=== PATIENT | male | born 1955 | race Caucasian/White ===

== ENCOUNTER 2016-10-12 12:41 | Inpatient (IN) | payer MEDICARE ==
[~2016-10-12] VITALS: Ht 180.3 cm; Wt 87.0 kg
[~2016-10-12 12:41] MED LIST: ADLT ASA LOW81 MG PO; ANUCORT-HC25 MG RE; ASA LO-DOSE81 MG OR; CIPRO500 MG OR; DILANTIN100 MG OR; DILANTIN100 MG PO; GLYBURID MCR6 MG PO; KLOR-CON 1010 MEQ PO; LISINOP/HCTZ1 TA1 PO; LISINOPRIL/HYDR1 TA1 PO; METFORMIN1000 MG PO; MULTI VITAMN PO; NOVOLOG SC; POT CHLORIDE10 MEQ OR; POT CHLORIDE8 ME1 OR; RANITIDINE150 M1 PO; ZOCOR20 MG PO
[2016-10-12] MEDS ORDERED: ALLOPURINOL100 MG PO (13:09)
[2016-10-12] MEDS ORDERED: MAXZIDE-2537.5 MG/TA PO (13:11)
[2016-10-12 13:50] LABS: HEMOGLOBIN 10.4 g/dl (14.0-18.0); IMMATURE GRANULOCYTES 1.4 % (0.0-1.0); MEAN CELL VOLUME 91.4 fL CALC (80.0-100.0); MEAN CORPUSCULAR HGB 29.7 pG CALC (26.0-32.0); MEAN CORPUSCULAR HGB CONC 32.5 g/L CALC (32.0-36.0); NEUT# 10.25 thou/uL (1.82-7.42); RED BLOOD COUNT 3.5 mill/uL (4.70-6.10)
[2016-10-12] MEDS ORDERED: GLIPIZIDE ER10 M1 PO (13:51)
[2016-10-12] MEDS ORDERED: AMLODIPINE10 MG PO (13:52)
[2016-10-12] MEDS ORDERED: LISINOPRIL/HYDR1 TA1 PO (13:54)
[2016-10-12] MEDS ORDERED: FLUOXETINE40 MG PO (13:55)
[2016-10-12 14:51] LABS: ALBUMIN 4.4 g/dL (3.2-5.0); ALKALINE PHOSPHATASE 86 u/l (38-126); AMYLASE 66 u/l (30-110); BILIRUBIN, TOTAL 0.5 mg/dL (0.0-1.4); BUN 61 mg/dL (8-23); BUN/CREATININE RATIO 30 (12-20 (CALC)); CALCIUM 9.3 mg/dL (8.4-10.2); CARBON DIOXIDE 19 mmol/l (22-30); CHLORIDE 109 mmol/l (95-108); GFR 34 ML/MIN (>=60 (CALC)); GFR FOR AFR.AMER. 41 ML/MIN (>=60 (CALC)); GLUCOSE 277 mg/dL (82-115); LIPASE 198 u/l (23-300); SGOT/AST 34 u/l (19-48); SGPT/ALT 45 u/l (11-66); SODIUM 147 mmol/l (137-146); TOTAL PROTEIN 7.3 g/dL (6.3-8.2)
[2016-10-12 14:57] LABS: ANION GAP 24 (6-22 (CALC)); PHENYTOIN (DILANTIN) 35 ug/mL (10 - 20); POTASSIUM 5.4 mmol/l (3.5-5.1)
[2016-10-12 15:07] LABS: MYOGLOBIN 608 ng/mL (0 - 121)
[2016-10-12 18:30] VITALS: BP 132/70
[2016-10-13 05:25] VITALS: BP 127/74
[2016-10-13 06:45] LABS: HEMATOCRIT 26.5 % (39.0-50.0); HEMOGLOBIN 8.6 g/dl (14.0-18.0); IMMATURE GRANULOCYTES 0.5 % (0.0-1.0); MEAN CELL VOLUME 91.7 fL CALC (80.0-100.0); MEAN CORPUSCULAR HGB 29.8 pG CALC (26.0-32.0); MEAN CORPUSCULAR HGB CONC 32.5 g/L CALC (32.0-36.0); NEUT# 4.71 thou/uL (1.82-7.42); RED BLOOD COUNT 2.89 mill/uL (4.70-6.10)
[2016-10-13 06:54] LABS: URINE BLOOD DIPSTICK TRACE-INTACT (NEGATIVE); URINE CLARITY SLIGHT CLOUDY; URINE COLOR YELLOW; URINE GLUCOSE - DIPSTICK NEGATIVE (NEGATIVE); URINE KETONE 15 mg/dL (NEGATIVE); URINE LEUK ESTERASE TRACE (NEGATIVE); URINE NITRITE - DIPSTICK NEGATIVE (Negative); URINE PH 5.5 (4.5-8.0); URINE PROTEIN - DIPSTICK NEGATIVE (NEG-TRACE); URINE UROBILINOGEN - DIPSTICK 0.2 E.U./dL (0.2)
[2016-10-13 07:02] LABS: URINE BILIRUBIN - DIPSTICK MODERATE (NEGATIVE)
[2016-10-13 07:06] LABS: CALCIUM 8.5 mg/dL (8.4-10.2); CREATININE 1.5 mg/dL (0.7-1.3)
[2016-10-13 09:27] VITALS: BP 148/75
[2016-10-13 11:30] VITALS: BP 144/74
[2016-10-13 15:12] VITALS: BP 101/62
[2016-10-13 19:05] VITALS: BP 138/85
[2016-10-14 00:10] VITALS: BP 138/81
[2016-10-14 04:24] VITALS: BP 120/68
[2016-10-14 06:12] LABS: HEMATOCRIT 24.4 % (39.0-50.0); HEMOGLOBIN 7.8 g/dl (14.0-18.0); IMMATURE GRANULOCYTES 0.3 % (0.0-1.0); MEAN CELL VOLUME 92.4 fL CALC (80.0-100.0); MEAN CORPUSCULAR HGB 29.5 pG CALC (26.0-32.0); NEUT# 2.47 thou/uL (1.82-7.42); RED BLOOD COUNT 2.64 mill/uL (4.70-6.10); RED CELL DISTRI WIDTH 16.6 % (11.5-15.5)
[2016-10-14 06:26] LABS: ANION GAP 15 (6-22 (CALC)); BUN 32 mg/dL (8-23); BUN/CREATININE RATIO 30 (12-20 (CALC)); CALCIUM 8.4 mg/dL (8.4-10.2); CARBON DIOXIDE 23 mmol/l (22-30); CHLORIDE 110 mmol/l (95-108); CREATININE 1.1 mg/dL (0.7-1.3); GFR > 60 ML/MIN (>=60 (CALC)); GFR FOR AFR.AMER. > 60 ML/MIN (>=60 (CALC)); GLUCOSE 224 mg/dL (82-115); POTASSIUM 4.2 mmol/l (3.5-5.1); SODIUM 144 mmol/l (137-146)
[2016-10-14 06:36] LABS: PHENYTOIN (DILANTIN) 21 ug/mL (10 - 20)
[2016-10-14 08:32] VITALS: BP 118/58
[2016-10-14 13:01] VITALS: BP 126/71
[2016-10-14 16:26] VITALS: BP 119/72
[2016-10-14 19:20] VITALS: BP 139/78
[2016-10-15] VITALS (7 sets, daily range): BP systolic 120–151; BP diastolic 68–87
[2016-10-15 05:42] LABS: HEMATOCRIT 24.9 % (39.0-50.0); IMMATURE GRANULOCYTES 0.3 % (0.0-1.0); MEAN CELL VOLUME 91.5 fL CALC (80.0-100.0); MEAN CORPUSCULAR HGB 29.4 pG CALC (26.0-32.0); MEAN CORPUSCULAR HGB CONC 32.1 g/L CALC (32.0-36.0); NEUT# 1.84 thou/uL (1.82-7.42); RED BLOOD COUNT 2.72 mill/uL (4.70-6.10); RED CELL DISTRI WIDTH 16.2 % (11.5-15.5)
[2016-10-15 05:58] LABS: ANION GAP 14 (6-22 (CALC)); BUN 23 mg/dL (8-23); BUN/CREATININE RATIO 22 (12-20 (CALC)); CALCIUM 8.5 mg/dL (8.4-10.2); CARBON DIOXIDE 24 mmol/l (22-30); CHLORIDE 108 mmol/l (95-108); GFR > 60 ML/MIN (>=60 (CALC)); GFR FOR AFR.AMER. > 60 ML/MIN (>=60 (CALC)); GLUCOSE 195 mg/dL (82-115); PHENYTOIN (DILANTIN) 15 ug/mL (10 - 20); POTASSIUM 4.3 mmol/l (3.5-5.1); SODIUM 141 mmol/l (137-146)
[2016-10-16 03:25] VITALS: BP 137/77
[2016-10-16 04:56] LABS: HEMATOCRIT 24.9 % (39.0-50.0); IMMATURE GRANULOCYTES 0.3 % (0.0-1.0); MEAN CELL VOLUME 91.5 fL CALC (80.0-100.0); MEAN CORPUSCULAR HGB 29.4 pG CALC (26.0-32.0); MEAN CORPUSCULAR HGB CONC 32.1 g/L CALC (32.0-36.0); NEUT# 1.94 thou/uL (1.82-7.42); RED BLOOD COUNT 2.72 mill/uL (4.70-6.10); RED CELL DISTRI WIDTH 16.1 % (11.5-15.5)
[2016-10-16 05:19] LABS: ANION GAP 13 (6-22 (CALC)); BUN 18 mg/dL (8-23); BUN/CREATININE RATIO 18 (12-20 (CALC)); CALCIUM 8.7 mg/dL (8.4-10.2); CARBON DIOXIDE 26 mmol/l (22-30); CHLORIDE 108 mmol/l (95-108); CREATININE 1.1 mg/dL (0.7-1.3); GFR > 60 ML/MIN (>=60 (CALC)); GFR FOR AFR.AMER. > 60 ML/MIN (>=60 (CALC)); GLUCOSE 193 mg/dL (82-115); SODIUM 142 mmol/l (137-146)
[2016-10-16 07:27] VITALS: BP 129/75
[2016-10-16 10:47] VITALS: BP 127/65
[2016-10-16] MEDS ORDERED: LYPHOCIN1 GM IV (11:55)
[2016-10-16] MEDS ORDERED: ZESTRIL5 M1 PO (11:55)
[2016-10-16 14:45] VITALS: BP 122/75
== END 2016-10-16 15:28 | DRG 683 ==
LOC: ENPENDDIS → ED 12:41 → ED-I 15:02 → ED 16:31 → MS2 16:32
PROVIDERS: Emergency Medicine; ADMIT Internal Medicine; ATTEND Internal Medicine
PROC: 02HV33Z Insertion of Infusion Device into Superior Vena Cava, Percutaneous Approach (ICD-10-PCS; principal; 2016-10-16)
PROC: B518ZZA Fluoroscopy of Superior Vena Cava, Guidance (ICD-10-PCS; 2016-10-16)
DX: N17.9 Acute kidney failure, unspecified (principal); K92.0 Hematemesis; L89.152 Pressure ulcer of sacral region, stage 2; D70.2 Other drug-induced agranulocytosis; R78.81 Bacteremia; I69.354 Hemiplegia and hemiparesis following cerebral infarction affecting left non-dominant side; E86.0 Dehydration; E86.1 Hypovolemia; E11.9 Type 2 diabetes mellitus without complications; I10 Essential (primary) hypertension; T42.0X5A Adverse effect of hydantoin derivatives, initial encounter; B95.7 Other staphylococcus as the cause of diseases classified elsewhere; G40.909 Epilepsy, unspecified, not intractable, without status epilepticus; Z91.81 History of falling; Z87.891 Personal history of nicotine dependence; Z79.84 Long term (current) use of oral hypoglycemic drugs
CPT/HCPCS: J3370; S0164

== ENCOUNTER 2017-06-16 19:16 | Emergency (ER) | payer MEDICARE ==
[~2017-06-16] VITALS: Ht 180.3 cm; Wt 83.6 kg
[~2017-06-16 19:16] MED LIST changes: +ALLOPURINOL100 MG PO; +AMLODIPINE10 MG PO; +FLUOXETINE40 MG PO; +GLIPIZIDE ER10 M1 PO; +LYPHOCIN1 GM IV; +MAXZIDE-2537.5 MG/TA PO; +ZESTRIL5 M1 PO
[2017-06-16 20:19] VITALS: BP 131/71
== END 2017-06-16 20:10 | disposition home or self-care (01) ==
LOC: ED 19:16
PROC: 0HQMXZZ Repair Right Foot Skin, External Approach (ICD-10-PCS; principal; 2017-06-16)
DX: S91.311A Laceration without foreign body, right foot, initial encounter (principal); E11.9 Type 2 diabetes mellitus without complications; W27.2XXA Contact with scissors, initial encounter; Y92.000 Kitchen of unspecified non-institutional (private) residence as the place of occurrence of the external cause; Z86.73 Personal history of transient ischemic attack (TIA), and cerebral infarction without residual deficits

== ENCOUNTER 2017-12-13 14:54 | Emergency (ER) | payer MEDICARE, MEDICAID ==
[~2017-12-13] VITALS: Ht 180.3 cm; Wt 86.0 kg
[2017-12-13 15:18] LABS: HEMATOCRIT 36.7 % (39.0-50.0); HEMOGLOBIN 11.9 g/dl (14.0-18.0); IMMATURE GRANULOCYTES 0.4 % (0.0-5.0); MEAN CELL VOLUME 83.8 fL CALC (80.0-100.0); MEAN CORPUSCULAR HGB 27.2 pG CALC (26.0-32.0); MEAN CORPUSCULAR HGB CONC 32.4 g/L CALC (32.0-36.0); NEUT# 4.61 thou/uL (1.82-7.42); RED BLOOD COUNT 4.38 mill/uL (4.70-6.10); RED CELL DISTRI WIDTH 15.4 % (11.5-15.5)
[2017-12-13 15:39] LABS: ALBUMIN 4.1 g/dL (3.2-5.0); ALKALINE PHOSPHATASE 121 u/l (38-126); BILIRUBIN, TOTAL 0.5 mg/dL (0.0-1.4); BUN 13 mg/dL (8-23); BUN/CREATININE RATIO 12 (12-20 (CALC)); CARBON DIOXIDE 24 mmol/l (22-30); CHLORIDE 98 mmol/l (95-108); CREATININE 1.1 mg/dL (0.7-1.3); GFR > 60 ML/MIN (>=60 (CALC)); GFR FOR AFR.AMER. > 60 ML/MIN (>=60 (CALC)); SGOT/AST 21 u/l (19-48); SGPT/ALT 28 u/l (11-66); TOTAL PROTEIN 7.3 g/dL (6.3-8.2)
[2017-12-13 15:41] LABS: ANION GAP 19 (6-22 (CALC)); PHENYTOIN (DILANTIN) 7 ug/mL (10 - 20); POTASSIUM 3.2 mmol/l (3.5-5.1); SODIUM 138 mmol/l (137-146)
[2017-12-13] MEDS ORDERED: GABAPENTIN300 M2 PO (16:17)
[2017-12-13] MEDS ORDERED: DILANTIN100 MG PO (16:18)
[2017-12-13] MEDS ORDERED: ZESTRIL5 MG PO (16:19)
[2017-12-13] MEDS ORDERED: HYDROCHLOROT12.5 M1 PO (16:20)
[2017-12-13] MEDS ORDERED: CRESTOR10 MG PO (16:22)
[2017-12-13 16:56] LABS: URINE BILIRUBIN - DIPSTICK NEGATIVE (NEGATIVE); URINE BLOOD DIPSTICK NEGATIVE (NEGATIVE); URINE CLARITY CLEAR; URINE COLOR YELLOW; URINE GLUCOSE - DIPSTICK >=1000 mg/dL (NEGATIVE); URINE KETONE NEGATIVE (NEGATIVE); URINE LEUK ESTERASE NEGATIVE (NEGATIVE); URINE NITRITE - DIPSTICK NEGATIVE (Negative); URINE PROTEIN - DIPSTICK NEGATIVE (NEG-TRACE); URINE UROBILINOGEN - DIPSTICK 0.2 E.U./dL (0.2)
[2017-12-13 17:00] LABS: BARBITURATES POSITIVE (NEGATIVE); COCAINE NEGATIVE (NEGATIVE); METHADONE NEGATIVE (NEGATIVE); OXCYCODONE NEGATIVE (NEGATIVE); TETRAHYDROCANNABIONOL NEGATIVE (NEGATIVE); TRICYLIC ANTIDEPRESSANTS NEGATIVE (NEGATIVE)
[2017-12-13] MEDS ORDERED: MIRALAX3350 N1 PO (17:06)
[2017-12-13] MEDS ORDERED: DULCOLAX10 MG RE (17:06)
[2017-12-13 17:45] VITALS: BP 154/75
== END 2017-12-13 17:45 | disposition home or self-care (01) ==
LOC: ED 14:54
PROVIDERS: Emergency Medicine
DX: K59.00 Constipation, unspecified (principal); E11.65 Type 2 diabetes mellitus with hyperglycemia; Z86.73 Personal history of transient ischemic attack (TIA), and cerebral infarction without residual deficits

== ENCOUNTER 2017-12-16 14:48 | Inpatient (IN) | payer MEDICARE, MEDICAID ==
[~2017-12-16] VITALS: Ht 180.3 cm; Wt 88.9 kg
[~2017-12-16 14:48] MED LIST changes: +CRESTOR10 MG PO; +DULCOLAX10 MG RE; +GABAPENTIN300 M2 PO; +HYDROCHLOROT12.5 M1 PO; +MIRALAX3350 N1 PO; +ZESTRIL5 MG PO
[2017-12-16 15:32] LABS: HEMOGLOBIN 11.1 g/dl (14.0-18.0); IMMATURE GRANULOCYTES 0.7 % (0.0-5.0); MEAN CELL VOLUME 84.4 fL CALC (80.0-100.0); MEAN CORPUSCULAR HGB 27.5 pG CALC (26.0-32.0); MEAN CORPUSCULAR HGB CONC 32.6 g/L CALC (32.0-36.0); NEUT# 11.92 thou/uL (1.82-7.42); RED BLOOD COUNT 4.03 mill/uL (4.70-6.10); RED CELL DISTRI WIDTH 15.6 % (11.5-15.5)
[2017-12-16 15:47] LABS: ALBUMIN 3.7 g/dL (3.2-5.0); ALKALINE PHOSPHATASE 106 u/l (38-126); ANION GAP 18 (6-22 (CALC)); BILIRUBIN, TOTAL 0.9 mg/dL (0.0-1.4); BUN 19 mg/dL (8-23); BUN/CREATININE RATIO 14 (12-20 (CALC)); CARBON DIOXIDE 24 mmol/l (22-30); CHLORIDE 97 mmol/l (95-108); CREATININE 1.4 mg/dL (0.7-1.3); GFR 51 ML/MIN (>=60 (CALC)); GFR FOR AFR.AMER. > 60 ML/MIN (>=60 (CALC)); LIPASE 84 u/l (23-300); POTASSIUM 3.7 mmol/l (3.5-5.1); SGPT/ALT 36 u/l (11-66); SODIUM 136 mmol/l (137-146); TOTAL PROTEIN 6.4 g/dL (6.3-8.2)
[2017-12-16 15:56] LABS: SGOT/AST 48 u/l (19-48)
[2017-12-16 17:54] LABS: URINE BILIRUBIN - DIPSTICK NEGATIVE (NEGATIVE); URINE BLOOD DIPSTICK LARGE (NEGATIVE); URINE CLARITY SL CLOUDY; URINE COLOR YELLOW; URINE GLUCOSE - DIPSTICK >=1000 mg/dL (NEGATIVE); URINE KETONE TRACE mg/dL (NEGATIVE); URINE LEUK ESTERASE NEGATIVE (NEGATIVE); URINE NITRITE - DIPSTICK POSITIVE (Negative); URINE PROTEIN - DIPSTICK 30 mg/dL (NEG-TRACE); URINE UROBILINOGEN - DIPSTICK 0.2 E.U./dL (0.2)
[2017-12-16 18:00] LABS: URINE BACTERIA FEW hpf
[2017-12-17 01:00] VITALS: BP 123/64
[2017-12-17 04:00] VITALS: BP 123/64
[2017-12-17 07:31] VITALS: BP 115/63
[2017-12-17 11:00] VITALS: BP 131/70
[2017-12-17 13:08] LABS: HEMATOCRIT 35.5 % (39.0-50.0); HEMOGLOBIN 11.2 g/dl (14.0-18.0); IMMATURE GRANULOCYTES 0.4 % (0.0-5.0); MEAN CELL VOLUME 86.4 fL CALC (80.0-100.0); MEAN CORPUSCULAR HGB 27.3 pG CALC (26.0-32.0); MEAN CORPUSCULAR HGB CONC 31.5 g/L CALC (32.0-36.0); NEUT# 7.27 thou/uL (1.82-7.42); RED BLOOD COUNT 4.11 mill/uL (4.70-6.10); RED CELL DISTRI WIDTH 15.8 % (11.5-15.5)
[2017-12-17 13:24] LABS: ANION GAP 15 (6-22 (CALC)); BUN 20 mg/dL (8-23); BUN/CREATININE RATIO 18 (12-20 (CALC)); CARBON DIOXIDE 23 mmol/l (22-30); CHLORIDE 105 mmol/l (95-108); CREATININE 1.1 mg/dL (0.7-1.3); GFR > 60 ML/MIN (>=60 (CALC)); GFR FOR AFR.AMER. > 60 ML/MIN (>=60 (CALC)); POTASSIUM 3.5 mmol/l (3.5-5.1); SODIUM 139 mmol/l (137-146)
[2017-12-17] MEDS ORDERED: ZYLOPRIM100 MG PO (13:48)
[2017-12-17] MEDS ORDERED: NEURONTIN300 MG PO (13:49)
[2017-12-17] MEDS ORDERED: PRINIVIL5 MG PO (13:50)
[2017-12-17] MEDS ORDERED: PHENYTOIN EX100 MG PO (13:52)
[2017-12-17] MEDS ORDERED: RANITIDINE150 M1 PO (13:53)
[2017-12-17] MEDS ORDERED: CRESTOR10 MG PO (13:54)
[2017-12-17] MEDS ORDERED: HYDROCHLOROT12.5 M1 PO (13:55)
[2017-12-17 16:50] VITALS: BP 135/62
[2017-12-17 19:33] VITALS: BP 117/64
[2017-12-18 00:45] VITALS: BP 138/72
[2017-12-18 05:03] VITALS: BP 144/76
[2017-12-18 08:44] VITALS: BP 143/84
[2017-12-18 11:14] VITALS: BP 145/79
[2017-12-18 15:50] VITALS: BP 158/80
[2017-12-18 19:27] VITALS: BP 140/75
[2017-12-19 00:46] VITALS: BP 149/69
[2017-12-19 04:32] VITALS: BP 137/75
[2017-12-19 08:49] VITALS: BP 128/68
[2017-12-19 11:23] VITALS: BP 145/78
[2017-12-19 15:30] VITALS: BP 144/79
[2017-12-19 19:12] VITALS: BP 138/71
[2017-12-20] VITALS (7 sets, daily range): BP systolic 127–154; BP diastolic 66–78
[2017-12-20 07:18] LABS: HEMATOCRIT 30.5 % (39.0-50.0); HEMOGLOBIN 9.9 g/dl (14.0-18.0); IMMATURE GRANULOCYTES 0.3 % (0.0-5.0); MEAN CELL VOLUME 84.3 fL CALC (80.0-100.0); MEAN CORPUSCULAR HGB 27.3 pG CALC (26.0-32.0); MEAN CORPUSCULAR HGB CONC 32.5 g/L CALC (32.0-36.0); NEUT# 2.02 thou/uL (1.82-7.42); RED BLOOD COUNT 3.62 mill/uL (4.70-6.10); RED CELL DISTRI WIDTH 15.1 % (11.5-15.5)
[2017-12-20 07:37] LABS: ANION GAP 13 (6-22 (CALC)); BUN 13 mg/dL (8-23); BUN/CREATININE RATIO 15 (12-20 (CALC)); CARBON DIOXIDE 25 mmol/l (22-30); CHLORIDE 104 mmol/l (95-108); CREATININE 0.9 mg/dL (0.7-1.3); GFR > 60 ML/MIN (>=60 (CALC)); GFR FOR AFR.AMER. > 60 ML/MIN (>=60 (CALC)); POTASSIUM 3.6 mmol/l (3.5-5.1); SODIUM 139 mmol/l (137-146)
[2017-12-20 10:47] LABS: CALCULATED LDLCHOLESTEROL 25 mg/dL (62-129 (CALC)); CHOLESTEROL HDL RATIO 7.6 (<4.4 (CALC)); HDL CHOLESTEROL 14 mg/dL (>=40); MAGNESIUM 1.7 mg/dL (1.6-2.3); TOTAL CHOLESTEROL 104 mg/dl (0-199); TOTAL TRIGLYCERIDES 327 mg/dl (30-149); VLDL CHOLESTROL 65 mg/dl (4-45 (CALC))
[2017-12-21] VITALS (8 sets, daily range): BP systolic 133–158; BP diastolic 69–78
[2017-12-21] MEDS ORDERED: KEFLEX500 MG PO (12:01)
[2017-12-21] MEDS ORDERED: SURFAK240 MG/CAP PO (12:01)
== END 2017-12-21 15:08 | DRG 690 ==
LOC: ED 14:48 → ED-I 22:20 → ED 12-17 00:13 → MS2 12-17 00:14
PROVIDERS: Family Medicine; General Practice; Nurse Practitioner Family; ADMIT Internal Medicine; ATTEND Internal Medicine
PROC: 0T768DZ Dilation of Right Ureter with Intraluminal Device, Via Natural or Artificial Opening Endoscopic (ICD-10-PCS; principal; 2017-12-21)
PROC: BT1DYZZ Fluoroscopy of Right Kidney, Ureter and Bladder using Other Contrast (ICD-10-PCS; 2017-12-21)
DX: N13.6 Pyonephrosis (principal); M62.82 Rhabdomyolysis; I69.354 Hemiplegia and hemiparesis following cerebral infarction affecting left non-dominant side; E87.2 Acidosis; R55 Syncope and collapse; N17.9 Acute kidney failure, unspecified; I10 Essential (primary) hypertension; E11.65 Type 2 diabetes mellitus with hyperglycemia; S00.03XA Contusion of scalp, initial encounter; S80.212A Abrasion, left knee, initial encounter; S80.211A Abrasion, right knee, initial encounter; G40.909 Epilepsy, unspecified, not intractable, without status epilepticus; B96.20 Unspecified Escherichia coli [E. coli] as the cause of diseases classified elsewhere; W18.30XA Fall on same level, unspecified, initial encounter; Y92.009 Unspecified place in unspecified non-institutional (private) residence as the place of occurrence of the external cause; Z87.891 Personal history of nicotine dependence; Z91.14 Patient's other noncompliance with medication regimen
CPT/HCPCS: Q9967

== ENCOUNTER 2018-08-08 15:54 | Observation (INO) | payer MEDICARE ==
[~2018-08-08] VITALS: Ht 180.3 cm; Wt 80.7 kg
[~2018-08-08 15:54] MED LIST changes: +KEFLEX500 MG PO; +NEURONTIN300 MG PO; +PHENYTOIN EX100 MG PO; +PRINIVIL5 MG PO; +SURFAK240 MG/CAP PO; +ZYLOPRIM100 MG PO
[2018-08-08 16:39] LABS: HEMATOCRIT 32.6 % (39.0-50.0); HEMOGLOBIN 10.2 g/dl (14.0-18.0); IMMATURE GRANULOCYTES 0.2 % (0.0-5.0); MEAN CELL VOLUME 89.1 fL CALC (80.0-100.0); MEAN CORPUSCULAR HGB 27.9 pG CALC (26.0-32.0); MEAN CORPUSCULAR HGB CONC 31.3 g/L CALC (32.0-36.0); NEUT# 4.18 thou/uL (1.82-7.42); RED BLOOD COUNT 3.66 mill/uL (4.70-6.10); RED CELL DISTRI WIDTH 15.9 % (11.5-15.5)
[2018-08-08 16:59] LABS: ALBUMIN 4.4 g/dL (3.2-5.0); ALKALINE PHOSPHATASE 105 u/l (38-126); ANION GAP 19 (6-22 (CALC)); BILIRUBIN, TOTAL 0.5 mg/dL (0.0-1.4); BUN 34 mg/dL (8-23); BUN/CREATININE RATIO 20 (12-20 (CALC)); CARBON DIOXIDE 23 mmol/l (22-30); CHLORIDE 106 mmol/l (95-108); CREATININE 1.7 mg/dL (0.7-1.3); ETHYL ALCOHOL 0 mg/dl (0-30); GFR 41 ML/MIN (>=60 (CALC)); GFR FOR AFR.AMER. 50 ML/MIN (>=60 (CALC)); SGOT/AST 18 u/l (19-48); SODIUM 144 mmol/l (137-146); TOTAL PROTEIN 7.4 g/dL (6.3-8.2)
[2018-08-08] MEDS ORDERED: ATORVASTATIN CA10 MG PO (18:56)
[2018-08-08] MEDS ORDERED: GLIPIZIDE ER5 MG PO (18:58)
[2018-08-08] MEDS ORDERED: METFORMIN500 MG PO (18:59)
[2018-08-08] MEDS ORDERED: TRADJENTA5 MG PO (19:00)
[2018-08-08] MEDS ORDERED: DILANTIN100 MG PO (19:01)
[2018-08-08] MEDS ORDERED: AMLODIPINE BESYL5 MG PO (19:02)
[2018-08-08] MEDS ORDERED: ASPIRIN81 MG PO (19:02)
[2018-08-08] MEDS ORDERED: MULTI VIT PO (19:06)
[2018-08-08 19:30] VITALS: BP 148/77
[2018-08-08 20:55] LABS: URINE BILIRUBIN - DIPSTICK NEGATIVE (NEGATIVE); URINE BLOOD DIPSTICK LARGE (NEGATIVE); URINE COLOR YELLOW; URINE GLUCOSE - DIPSTICK NEGATIVE (NEGATIVE); URINE KETONE NEGATIVE (NEGATIVE); URINE NITRITE - DIPSTICK NEGATIVE (Negative); URINE PH 6.5 (4.5-8.0); URINE PROTEIN - DIPSTICK 100 mg/dL (NEG-TRACE); URINE UROBILINOGEN - DIPSTICK 0.2 E.U./dL (0.2)
[2018-08-08 20:56] LABS: URINE LEUK ESTERASE LARGE (NEGATIVE)
[2018-08-08 20:58] LABS: COCAINE NEGATIVE (NEGATIVE); METHADONE NEGATIVE (NEGATIVE); TETRAHYDROCANNABIONOL NEGATIVE (NEGATIVE)
[2018-08-08 20:59] LABS: BARBITURATES POSITIVE (NEGATIVE); OXCYCODONE NEGATIVE (NEGATIVE); TRICYLIC ANTIDEPRESSANTS NEGATIVE (NEGATIVE)
[2018-08-08 21:02] LABS: URINE WBC 50-100 WBC/hpf (0-5)
[2018-08-09 00:33] VITALS: BP 121/69
[2018-08-09 04:15] VITALS: BP 120/64
[2018-08-09 06:14] LABS: ANION GAP 14 (6-22 (CALC)); BUN 28 mg/dL (8-23); BUN/CREATININE RATIO 21 (12-20 (CALC)); CARBON DIOXIDE 25 mmol/l (22-30); CHLORIDE 110 mmol/l (95-108); CREATININE 1.3 mg/dL (0.7-1.3); GFR 56 ML/MIN (>=60 (CALC)); GFR FOR AFR.AMER. > 60 ML/MIN (>=60 (CALC)); POTASSIUM 4.2 mmol/l (3.5-5.1); SODIUM 144 mmol/l (137-146)
[2018-08-09 07:43] VITALS: BP 116/61
[2018-08-09 11:30] VITALS: BP 118/61
[2018-08-09 17:18] VITALS: BP 105/58
[2018-08-09 19:00] VITALS: BP 110/62
[2018-08-10] VITALS (9 sets, daily range): BP systolic 108–139; BP diastolic 64–75
[2018-08-10 05:15] LABS: HEMATOCRIT 35.6 % (39.0-50.0); IMMATURE GRANULOCYTES 0.2 % (0.0-5.0); MEAN CELL VOLUME 91.5 fL CALC (80.0-100.0); MEAN CORPUSCULAR HGB 28.3 pG CALC (26.0-32.0); MEAN CORPUSCULAR HGB CONC 30.9 g/L CALC (32.0-36.0); NEUT# 3.37 thou/uL (1.82-7.42); RED BLOOD COUNT 3.89 mill/uL (4.70-6.10); RED CELL DISTRI WIDTH 15.7 % (11.5-15.5)
[2018-08-10 05:32] LABS: ALBUMIN 3.8 g/dL (3.2-5.0); ALKALINE PHOSPHATASE 88 u/l (38-126); AMYLASE 72 u/l (30-110); ANION GAP 14 (6-22 (CALC)); BILIRUBIN, TOTAL 0.3 mg/dL (0.0-1.4); BUN 21 mg/dL (8-23); BUN/CREATININE RATIO 19 (12-20 (CALC)); CARBON DIOXIDE 23 mmol/l (22-30); CHLORIDE 112 mmol/l (95-108); CREATININE 1.1 mg/dL (0.7-1.3); GFR > 60 ML/MIN (>=60 (CALC)); GFR FOR AFR.AMER. > 60 ML/MIN (>=60 (CALC)); LIPASE 465 u/l (23-300); MAGNESIUM 1.7 mg/dL (1.6-2.3); POTASSIUM 4.3 mmol/l (3.5-5.1); SGOT/AST 19 u/l (19-48); SODIUM 146 mmol/l (137-146); TOTAL PROTEIN 6.4 g/dL (6.3-8.2)
[2018-08-11] VITALS (8 sets, daily range): BP systolic 88–137; BP diastolic 51–78
[2018-08-11 05:13] LABS: IMMATURE GRANULOCYTES 0.2 % (0.0-5.0); MEAN CELL VOLUME 89.3 fL CALC (80.0-100.0); MEAN CORPUSCULAR HGB 28.1 pG CALC (26.0-32.0); MEAN CORPUSCULAR HGB CONC 31.4 g/L CALC (32.0-36.0); NEUT# 5.59 thou/uL (1.82-7.42); RED BLOOD COUNT 3.92 mill/uL (4.70-6.10); RED CELL DISTRI WIDTH 15.9 % (11.5-15.5)
[2018-08-11 05:39] LABS: ALBUMIN 4.2 g/dL (3.2-5.0); ALKALINE PHOSPHATASE 91 u/l (38-126); ANION GAP 15 (6-22 (CALC)); BILIRUBIN, TOTAL 0.3 mg/dL (0.0-1.4); BUN 26 mg/dL (8-23); BUN/CREATININE RATIO 23 (12-20 (CALC)); CARBON DIOXIDE 25 mmol/l (22-30); CHLORIDE 107 mmol/l (95-108); CREATININE 1.1 mg/dL (0.7-1.3); GFR > 60 ML/MIN (>=60 (CALC)); GFR FOR AFR.AMER. > 60 ML/MIN (>=60 (CALC)); MAGNESIUM 1.7 mg/dL (1.6-2.3); POTASSIUM 4.3 mmol/l (3.5-5.1); SGOT/AST 17 u/l (19-48); SODIUM 143 mmol/l (137-146); TOTAL PROTEIN 7.1 g/dL (6.3-8.2)
== END 2018-08-11 17:44 ==
LOC: ED 15:54 → ED-I 18:20 → ED 18:39 → MS2 18:40
PROVIDERS: Emergency Medicine; Internal Medicine Nephrology; ADMIT Internal Medicine; ATTEND Internal Medicine
DX: R55 Syncope and collapse (principal); N17.9 Acute kidney failure, unspecified; I10 Essential (primary) hypertension; E11.40 Type 2 diabetes mellitus with diabetic neuropathy, unspecified; I69.354 Hemiplegia and hemiparesis following cerebral infarction affecting left non-dominant side; G40.909 Epilepsy, unspecified, not intractable, without status epilepticus; E78.5 Hyperlipidemia, unspecified; N28.1 Cyst of kidney, acquired; E86.9 Volume depletion, unspecified; R80.9 Proteinuria, unspecified; Z87.891 Personal history of nicotine dependence

== ENCOUNTER 2018-09-02 13:49 | Emergency (ER) | payer MEDICARE ==
[~2018-09-02] VITALS: Ht 180.3 cm; Wt 90.0 kg
[~2018-09-02 13:49] MED LIST changes: +AMLODIPINE BESYL5 MG PO; +ASPIRIN81 MG PO; +ATORVASTATIN CA10 MG PO; +GLIPIZIDE ER5 MG PO; +METFORMIN500 MG PO; +MULTI VIT PO; +TRADJENTA5 MG PO
[2018-09-02 14:39] LABS: HEMATOCRIT 30.2 % (39.0-50.0); HEMOGLOBIN 9.6 g/dl (14.0-18.0); IMMATURE GRANULOCYTES 0.3 % (0.0-5.0); MEAN CELL VOLUME 91.8 fL CALC (80.0-100.0); MEAN CORPUSCULAR HGB 29.2 pG CALC (26.0-32.0); MEAN CORPUSCULAR HGB CONC 31.8 g/L CALC (32.0-36.0); NEUT# 4.23 thou/uL (1.82-7.42); RED BLOOD COUNT 3.29 mill/uL (4.70-6.10); RED CELL DISTRI WIDTH 16.1 % (11.5-15.5)
[2018-09-02 15:02] LABS: ALBUMIN 4.3 g/dL (3.2-5.0); ALKALINE PHOSPHATASE 115 u/l (38-126); ANION GAP 15 (6-22 (CALC)); BILIRUBIN, TOTAL 0.4 mg/dL (0.0-1.4); BUN 30 mg/dL (8-23); BUN/CREATININE RATIO 22 (12-20 (CALC)); CARBON DIOXIDE 22 mmol/l (22-30); CHLORIDE 107 mmol/l (95-108); CREATININE 1.4 mg/dL (0.7-1.3); GFR 51 ML/MIN (>=60 (CALC)); GFR FOR AFR.AMER. > 60 ML/MIN (>=60 (CALC)); LIPASE 333 u/l (23-300); POTASSIUM 4.1 mmol/l (3.5-5.1); SGOT/AST 15 u/l (19-48); SODIUM 140 mmol/l (137-146); TOTAL PROTEIN 7.2 g/dL (6.3-8.2)
[2018-09-02 17:09] LABS: URINE BILIRUBIN - DIPSTICK NEGATIVE (NEGATIVE); URINE BLOOD DIPSTICK LARGE (NEGATIVE); URINE COLOR YELLOW; URINE GLUCOSE - DIPSTICK NEGATIVE (NEGATIVE); URINE KETONE NEGATIVE (NEGATIVE); URINE NITRITE - DIPSTICK NEGATIVE (Negative); URINE PROTEIN - DIPSTICK 30 mg/dL (NEG-TRACE); URINE UROBILINOGEN - DIPSTICK 0.2 E.U./dL (0.2)
[2018-09-02 17:34] LABS: URINE LEUK ESTERASE MODERATE (NEGATIVE)
[2018-09-02 17:42] LABS: URINE BACTERIA FEW hpf; URINE RBC TNTC RBC/hpf (0-5); URINE SQUAMOUS EPITHELIAL CELL FEW EPI/hpf (0-FEW)
[2018-09-02] MEDS ORDERED: BACTRIM DS1 TAB PO (19:39)
[2018-09-02] MEDS ORDERED: TYLENOL # 31 TA1 PO (19:39)
[2018-09-02 20:50] VITALS: BP 136/68
== END 2018-09-02 20:50 | disposition home or self-care (01) ==
LOC: ED 13:49
PROVIDERS: Emergency Medicine
DX: N13.2 Hydronephrosis with renal and ureteral calculous obstruction (principal); I10 Essential (primary) hypertension; E11.9 Type 2 diabetes mellitus without complications; I69.954 Hemiplegia and hemiparesis following unspecified cerebrovascular disease affecting left non-dominant side; G40.909 Epilepsy, unspecified, not intractable, without status epilepticus; Z96.0 Presence of urogenital implants

== ENCOUNTER 2019-01-23 14:39 | Inpatient (IN) | payer MEDICARE ==
[~2019-01-23] VITALS: Ht 180.3 cm; Wt 65.0 kg
[~2019-01-23 14:39] MED LIST changes: +BACTRIM DS1 TAB PO; +TYLENOL # 31 TA1 PO
[2019-01-23 15:23] VITALS: BP 114/62
[2019-01-23 15:26] LABS: HEMOGLOBIN 8.2 g/dl (14.0-18.0); IMMATURE GRANULOCYTES 0.7 % (0.0-5.0); MEAN CELL VOLUME 94.2 fL CALC (80.0-100.0); MEAN CORPUSCULAR HGB 29.7 pG CALC (26.0-32.0); MEAN CORPUSCULAR HGB CONC 31.5 g/L CALC (32.0-36.0); NEUT# 8.32 thou/uL (1.82-7.42); RED BLOOD COUNT 2.76 mill/uL (4.70-6.10); RED CELL DISTRI WIDTH 14.1 % (11.5-15.5)
[2019-01-23 15:54] LABS: ANION GAP 16 (6-22 (CALC)); BILIRUBIN, TOTAL 0.3 mg/dL (0.0-1.4); BUN 32 mg/dL (8-23); BUN/CREATININE RATIO 27 (12-20 (CALC)); CARBON DIOXIDE 24 mmol/l (22-30); CHLORIDE 102 mmol/l (95-108); CREATININE 1.2 mg/dL (0.7-1.3); GFR > 60 ML/MIN (>=60 (CALC)); GFR FOR AFR.AMER. > 60 ML/MIN (>=60 (CALC)); POTASSIUM 4.8 mmol/l (3.5-5.1); SODIUM 137 mmol/l (137-146); TOTAL PROTEIN 6.8 g/dL (6.3-8.2)
[2019-01-23] MEDS ORDERED: FEOSOL200 MG PO (16:04)
[2019-01-23] MEDS ORDERED: NOVOLOG100 UNIT/M (16:11)
[2019-01-23 16:20] LABS: ALBUMIN 3.3 g/dL (3.2-5.0); ALKALINE PHOSPHATASE 187 u/l (38-126); SGOT/AST 171 u/l (19-48)
[2019-01-23 16:25] LABS: URINE BLOOD DIPSTICK LARGE (NEGATIVE); URINE GLUCOSE - DIPSTICK NEGATIVE (NEGATIVE); URINE KETONE TRACE mg/dL (NEGATIVE); URINE PROTEIN - DIPSTICK >=300 mg/dL (NEG-TRACE)
[2019-01-23 16:27] LABS: URINE BILIRUBIN - DIPSTICK MODERATE (NEGATIVE); URINE COLOR BLOODY; URINE LEUK ESTERASE SMALL (NEGATIVE); URINE NITRITE - DIPSTICK POSITIVE (Negative)
[2019-01-23 16:30] LABS: URINE RBC TNTC RBC/hpf (0-5)
[2019-01-23 16:31] LABS: URINE BACTERIA MODERATE hpf; URINE SQUAMOUS EPITHELIAL CELL FEW EPI/hpf (0-FEW)
[2019-01-23 18:25] VITALS: BP 122/67
[2019-01-23 18:49] VITALS: BP 133/75
[2019-01-23 19:34] VITALS: BP 110/64
[2019-01-23 21:24] VITALS: BP 117/68
[2019-01-23 23:15] VITALS: BP 115/60
[2019-01-24 04:00] VITALS: BP 122/71
[2019-01-24 05:17] LABS: HEMATOCRIT 26.1 % (39.0-50.0); HEMOGLOBIN 8.5 g/dl (14.0-18.0)
[2019-01-24 08:00] VITALS: BP 115/63
[2019-01-24 09:22] LABS: ANION GAP 12 (6-22 (CALC)); BUN 32 mg/dL (8-23); BUN/CREATININE RATIO 31 (12-20 (CALC)); CARBON DIOXIDE 26 mmol/l (22-30); CHLORIDE 103 mmol/l (95-108); GFR > 60 ML/MIN (>=60 (CALC)); GFR FOR AFR.AMER. > 60 ML/MIN (>=60 (CALC)); POTASSIUM 4.2 mmol/l (3.5-5.1); SODIUM 137 mmol/l (137-146)
[2019-01-24 09:55] LABS: BILIRUBIN, TOTAL 0.4 mg/dL (0.0-1.4); TOTAL PROTEIN 6.2 g/dL (6.3-8.2)
[2019-01-24 11:18] VITALS: BP 121/62
[2019-01-24 14:35] LABS: HEMATOCRIT 25.7 % (39.0-50.0); HEMOGLOBIN 8.2 g/dl (14.0-18.0)
[2019-01-24 15:57] VITALS: BP 115/62
[2019-01-24 19:13] VITALS: BP 121/62
[2019-01-25] VITALS (12 sets, daily range): BP systolic 106–135; BP diastolic 61–71
[2019-01-25 05:13] LABS: HEMATOCRIT 26.1 % (39.0-50.0); HEMOGLOBIN 8.4 g/dl (14.0-18.0); MEAN CELL VOLUME 92.6 fL CALC (80.0-100.0); MEAN CORPUSCULAR HGB 29.8 pG CALC (26.0-32.0); MEAN CORPUSCULAR HGB CONC 32.2 g/L CALC (32.0-36.0); RED BLOOD COUNT 2.82 mill/uL (4.70-6.10); RED CELL DISTRI WIDTH 14.1 % (11.5-15.5)
[2019-01-25 05:32] LABS: ANION GAP 12 (6-22 (CALC)); BUN 30 mg/dL (8-23); BUN/CREATININE RATIO 28 (12-20 (CALC)); CARBON DIOXIDE 25 mmol/l (22-30); CHLORIDE 104 mmol/l (95-108); CREATININE 1.1 mg/dL (0.7-1.3); GFR > 60 ML/MIN (>=60 (CALC)); GFR FOR AFR.AMER. > 60 ML/MIN (>=60 (CALC)); POTASSIUM 4.4 mmol/l (3.5-5.1); SODIUM 137 mmol/l (137-146)
[2019-01-26] VITALS (9 sets, daily range): BP systolic 110–146; BP diastolic 63–82
[2019-01-26 05:12] LABS: HEMATOCRIT 24.2 % (39.0-50.0); HEMOGLOBIN 7.9 g/dl (14.0-18.0); MEAN CELL VOLUME 91.3 fL CALC (80.0-100.0); MEAN CORPUSCULAR HGB 29.8 pG CALC (26.0-32.0); MEAN CORPUSCULAR HGB CONC 32.6 g/L CALC (32.0-36.0); RED BLOOD COUNT 2.65 mill/uL (4.70-6.10); RED CELL DISTRI WIDTH 13.8 % (11.5-15.5)
[2019-01-26 05:26] LABS: ANION GAP 12 (6-22 (CALC)); BUN 29 mg/dL (8-23); BUN/CREATININE RATIO 28 (12-20 (CALC)); CARBON DIOXIDE 22 mmol/l (22-30); CHLORIDE 108 mmol/l (95-108); CREATININE 1.1 mg/dL (0.7-1.3); GFR > 60 ML/MIN (>=60 (CALC)); GFR FOR AFR.AMER. > 60 ML/MIN (>=60 (CALC)); POTASSIUM 4.6 mmol/l (3.5-5.1); SODIUM 137 mmol/l (137-146)
[2019-01-26 08:23] LABS: ALBUMIN 2.6 g/dL (3.2-5.0); BILIRUBIN, TOTAL 0.3 mg/dL (0.0-1.4); TOTAL PROTEIN 5.7 g/dL (6.3-8.2)
[2019-01-27 04:32] VITALS: BP 116/67
[2019-01-27 08:42] LABS: HEMATOCRIT 30.1 % (39.0-50.0); HEMOGLOBIN 9.7 g/dl (14.0-18.0); MEAN CELL VOLUME 90.9 fL CALC (80.0-100.0); MEAN CORPUSCULAR HGB 29.3 pG CALC (26.0-32.0); MEAN CORPUSCULAR HGB CONC 32.2 g/L CALC (32.0-36.0); RED BLOOD COUNT 3.31 mill/uL (4.70-6.10); RED CELL DISTRI WIDTH 14.6 % (11.5-15.5)
[2019-01-27 09:25] LABS: ANION GAP 12 (6-22 (CALC)); BUN 31 mg/dL (8-23); BUN/CREATININE RATIO 26 (12-20 (CALC)); CARBON DIOXIDE 28 mmol/l (22-30); CHLORIDE 103 mmol/l (95-108); CREATININE 1.2 mg/dL (0.7-1.3); GFR > 60 ML/MIN (>=60 (CALC)); GFR FOR AFR.AMER. > 60 ML/MIN (>=60 (CALC)); POTASSIUM 4.7 mmol/l (3.5-5.1); SODIUM 138 mmol/l (137-146)
[2019-01-27 10:55] VITALS: BP 117/69
[2019-01-27 16:01] VITALS: BP 116/67
[2019-01-27 18:58] VITALS: BP 115/68
[2019-01-28 00:35] VITALS: BP 116/64
[2019-01-28 04:00] VITALS: BP 111/66
[2019-01-28 04:50] LABS: HEMATOCRIT 27.5 % (39.0-50.0); HEMOGLOBIN 8.9 g/dl (14.0-18.0); MEAN CELL VOLUME 91.7 fL CALC (80.0-100.0); MEAN CORPUSCULAR HGB 29.7 pG CALC (26.0-32.0); MEAN CORPUSCULAR HGB CONC 32.4 g/L CALC (32.0-36.0); RED CELL DISTRI WIDTH 14.6 % (11.5-15.5)
[2019-01-28 05:09] LABS: ANION GAP 11 (6-22 (CALC)); BUN 30 mg/dL (8-23); BUN/CREATININE RATIO 31 (12-20 (CALC)); CARBON DIOXIDE 25 mmol/l (22-30); CHLORIDE 105 mmol/l (95-108); GFR > 60 ML/MIN (>=60 (CALC)); GFR FOR AFR.AMER. > 60 ML/MIN (>=60 (CALC)); POTASSIUM 4.6 mmol/l (3.5-5.1); SODIUM 136 mmol/l (137-146)
[2019-01-28 07:56] VITALS: BP 115/65
[2019-01-28 11:00] VITALS: BP 116/69
[2019-01-28 14:45] VITALS: BP 117/65
[2019-01-28 19:55] VITALS: BP 112/67
[2019-01-29] VITALS (12 sets, daily range): BP systolic 104–133; BP diastolic 59–84
[2019-01-29 05:37] LABS: HEMATOCRIT 25.4 % (39.0-50.0); HEMOGLOBIN 8.2 g/dl (14.0-18.0); MEAN CELL VOLUME 92.7 fL CALC (80.0-100.0); MEAN CORPUSCULAR HGB 29.9 pG CALC (26.0-32.0); MEAN CORPUSCULAR HGB CONC 32.3 g/L CALC (32.0-36.0); RED BLOOD COUNT 2.74 mill/uL (4.70-6.10); RED CELL DISTRI WIDTH 14.6 % (11.5-15.5)
[2019-01-30 03:48] VITALS: BP 98/53
[2019-01-30 05:18] LABS: HEMATOCRIT 26.2 % (39.0-50.0); HEMOGLOBIN 8.3 g/dl (14.0-18.0); MEAN CELL VOLUME 94.9 fL CALC (80.0-100.0); MEAN CORPUSCULAR HGB 30.1 pG CALC (26.0-32.0); MEAN CORPUSCULAR HGB CONC 31.7 g/L CALC (32.0-36.0); RED BLOOD COUNT 2.76 mill/uL (4.70-6.10); RED CELL DISTRI WIDTH 14.7 % (11.5-15.5)
[2019-01-30 07:22] VITALS: BP 121/72
[2019-01-30 11:20] VITALS: BP 122/86
[2019-01-30 14:45] VITALS: BP 133/74
[2019-01-30 19:40] VITALS: BP 131/72
[2019-01-30 23:23] VITALS: BP 124/66
[2019-01-31] VITALS (15 sets, daily range): BP systolic 72–135; BP diastolic 32–80
[2019-01-31 04:53] LABS: HEMATOCRIT 23.9 % (39.0-50.0); HEMOGLOBIN 7.6 g/dl (14.0-18.0); MEAN CELL VOLUME 94.8 fL CALC (80.0-100.0); MEAN CORPUSCULAR HGB 30.2 pG CALC (26.0-32.0); MEAN CORPUSCULAR HGB CONC 31.8 g/L CALC (32.0-36.0); RED BLOOD COUNT 2.52 mill/uL (4.70-6.10); RED CELL DISTRI WIDTH 14.7 % (11.5-15.5)
[2019-01-31 05:05] LABS: ANION GAP 10 (6-22 (CALC)); BUN 26 mg/dL (8-23); BUN/CREATININE RATIO 24 (12-20 (CALC)); CARBON DIOXIDE 23 mmol/l (22-30); CHLORIDE 107 mmol/l (95-108); CREATININE 1.1 mg/dL (0.7-1.3); GFR > 60 ML/MIN (>=60 (CALC)); GFR FOR AFR.AMER. > 60 ML/MIN (>=60 (CALC)); POTASSIUM 4.7 mmol/l (3.5-5.1); SODIUM 135 mmol/l (137-146)
[2019-02-01] VITALS (9 sets, daily range): BP systolic 118–134; BP diastolic 67–79
[2019-02-01 05:02] LABS: HEMATOCRIT 23.4 % (39.0-50.0); HEMOGLOBIN 7.4 g/dl (14.0-18.0); MEAN CORPUSCULAR HGB 29.7 pG CALC (26.0-32.0); MEAN CORPUSCULAR HGB CONC 31.6 g/L CALC (32.0-36.0); RED BLOOD COUNT 2.49 mill/uL (4.70-6.10); RED CELL DISTRI WIDTH 14.9 % (11.5-15.5)
[2019-02-02] VITALS: BP 128/84
[2019-02-02 04:06] VITALS: BP 115/59
[2019-02-02 04:58] LABS: HEMATOCRIT 27.6 % (39.0-50.0); HEMOGLOBIN 8.8 g/dl (14.0-18.0); MEAN CORPUSCULAR HGB 29.3 pG CALC (26.0-32.0); MEAN CORPUSCULAR HGB CONC 31.9 g/L CALC (32.0-36.0); RED CELL DISTRI WIDTH 16.1 % (11.5-15.5)
[2019-02-02 05:18] LABS: ANION GAP 11 (6-22 (CALC)); BUN 31 mg/dL (8-23); BUN/CREATININE RATIO 27 (12-20 (CALC)); CARBON DIOXIDE 24 mmol/l (22-30); CHLORIDE 106 mmol/l (95-108); CREATININE 1.1 mg/dL (0.7-1.3); GFR > 60 ML/MIN (>=60 (CALC)); GFR FOR AFR.AMER. > 60 ML/MIN (>=60 (CALC)); POTASSIUM 4.1 mmol/l (3.5-5.1); SODIUM 136 mmol/l (137-146)
[2019-02-02 08:23] VITALS: BP 133/61
[2019-02-02] MEDS ORDERED: KEFLEX500 M1 PO (10:25)
[2019-02-02 10:53] VITALS: BP 130/70
== END 2019-02-02 17:25 | DRG 717 ==
LOC: MS2 14:39
PROVIDERS: ADMIT Internal Medicine; ATTEND Internal Medicine
PROC: 30233N1 Transfusion of Nonautologous Red Blood Cells into Peripheral Vein, Percutaneous Approach (ICD-10-PCS; principal; 2019-01-23)
PROC: 0W3R8ZZ Control Bleeding in Genitourinary Tract, Via Natural or Artificial Opening Endoscopic (ICD-10-PCS; 2019-01-25)
PROC: 0TCB8ZZ Extirpation of Matter from Bladder, Via Natural or Artificial Opening Endoscopic (ICD-10-PCS; 2019-01-25)
PROC: 30233N1 Transfusion of Nonautologous Red Blood Cells into Peripheral Vein, Percutaneous Approach (ICD-10-PCS; 2019-01-26)
PROC: 0W3R8ZZ Control Bleeding in Genitourinary Tract, Via Natural or Artificial Opening Endoscopic (ICD-10-PCS; 2019-01-29)
PROC: 0TCB8ZZ Extirpation of Matter from Bladder, Via Natural or Artificial Opening Endoscopic (ICD-10-PCS; 2019-01-29)
PROC: 30233N1 Transfusion of Nonautologous Red Blood Cells into Peripheral Vein, Percutaneous Approach (ICD-10-PCS; 2019-02-01)
DX: N42.1 Congestion and hemorrhage of prostate (principal); I69.954 Hemiplegia and hemiparesis following unspecified cerebrovascular disease affecting left non-dominant side; N30.81 Other cystitis with hematuria; D50.0 Iron deficiency anemia secondary to blood loss (chronic); E11.40 Type 2 diabetes mellitus with diabetic neuropathy, unspecified; R10.9 Unspecified abdominal pain; I95.2 Hypotension due to drugs; T45.625A Adverse effect of hemostatic drug, initial encounter; I10 Essential (primary) hypertension; L89.152 Pressure ulcer of sacral region, stage 2; E78.5 Hyperlipidemia, unspecified; G40.909 Epilepsy, unspecified, not intractable, without status epilepticus; K21.9 Gastro-esophageal reflux disease without esophagitis; Z87.891 Personal history of nicotine dependence; Z87.442 Personal history of urinary calculi; Z96.0 Presence of urogenital implants; Z79.4 Long term (current) use of insulin
CPT/HCPCS: J0692; P9016; Q9967

== ENCOUNTER 2019-03-07 16:14 | Emergency (ER) | payer MEDICARE ==
[~2019-03-07] VITALS: Ht 180.3 cm; Wt 90.9 kg
[~2019-03-07 16:14] MED LIST changes: +FEOSOL200 MG PO; +KEFLEX500 M1 PO; +NOVOLOG100 UNIT/M
[2019-03-07 16:43] LABS: HEMATOCRIT 28.7 % (39.0-50.0); HEMOGLOBIN 9.1 g/dl (14.0-18.0); IMMATURE GRANULOCYTES 0.4 % (0.0-5.0); MEAN CELL VOLUME 92.9 fL CALC (80.0-100.0); MEAN CORPUSCULAR HGB 29.4 pG CALC (26.0-32.0); MEAN CORPUSCULAR HGB CONC 31.7 g/L CALC (32.0-36.0); NEUT# 7.3 thou/uL (1.82-7.42); RED BLOOD COUNT 3.09 mill/uL (4.70-6.10)
[2019-03-07 17:07] LABS: ALBUMIN 3.5 g/dL (3.2-5.0); ALKALINE PHOSPHATASE 82 u/l (38-126); ANION GAP 16 (6-22 (CALC)); BILIRUBIN, TOTAL 0.4 mg/dL (0.0-1.4); BUN 45 mg/dL (8-23); BUN/CREATININE RATIO 38 (12-20 (CALC)); CARBON DIOXIDE 23 mmol/l (22-30); CHLORIDE 106 mmol/l (95-108); CPK 40 u/l (52-200); CREATININE 1.2 mg/dL (0.7-1.3); GFR > 60 ML/MIN (>=60 (CALC)); GFR FOR AFR.AMER. > 60 ML/MIN (>=60 (CALC)); POTASSIUM 4.3 mmol/l (3.5-5.1); SGOT/AST 23 u/l (19-48); SODIUM 141 mmol/l (137-146); TOTAL PROTEIN 6.9 g/dL (6.3-8.2)
[2019-03-07 17:19] LABS: MYOGLOBIN 90 ng/mL (0 - 121)
[2019-03-07 17:38] LABS: TSH, 3RD GENERATION 0.36 uIU/mL (0.47 - 4.68)
[2019-03-07] MEDS ORDERED: FAMOTIDINE20 M1 PO (17:44)
[2019-03-07 20:23] VITALS: BP 135/70
== END 2019-03-07 20:24 | disposition home or self-care (01) ==
LOC: ED 16:14
PROVIDERS: Family Medicine
DX: R53.1 Weakness (principal); I10 Essential (primary) hypertension; E11.9 Type 2 diabetes mellitus without complications; I69.954 Hemiplegia and hemiparesis following unspecified cerebrovascular disease affecting left non-dominant side; Z79.4 Long term (current) use of insulin

== ENCOUNTER 2019-03-09 03:29 | Inpatient (IN) | payer MEDICARE ==
[~2019-03-09] VITALS: Ht 180.3 cm; Wt 68.0 kg
[~2019-03-09 03:29] MED LIST changes: +FAMOTIDINE20 M1 PO
--- NOTE | 2019-03-09 03:31 | NUR ---
PATIENT TO ROOM 13 VIA EMS STRETCHER. PATIENT HAD BM CORRECTIONS CORPORAL. PLACED ON MONITOR, TRIAGE COMPLETED AT BEDSIDE. AWAITING MD LAM.
[2019-03-09 04:00] LABS: HEMATOCRIT 31.2 % (39.0-50.0); HEMOGLOBIN 9.5 g/dl (14.0-18.0); IMMATURE GRANULOCYTES 0.4 % (0.0-5.0); MEAN CELL VOLUME 94.3 fL CALC (80.0-100.0); MEAN CORPUSCULAR HGB 28.7 pG CALC (26.0-32.0); MEAN CORPUSCULAR HGB CONC 30.4 g/L CALC (32.0-36.0); NEUT# 4.95 thou/uL (1.82-7.42); RED BLOOD COUNT 3.31 mill/uL (4.70-6.10); RED CELL DISTRI WIDTH 14.8 % (11.5-15.5)
[2019-03-09 04:18] LABS: ALBUMIN 3.6 g/dL (3.2-5.0); ALKALINE PHOSPHATASE 82 u/l (38-126); ANION GAP 15 (6-22 (CALC)); BILIRUBIN, TOTAL 0.3 mg/dL (0.0-1.4); BUN 38 mg/dL (8-23); BUN/CREATININE RATIO 33 (12-20 (CALC)); CARBON DIOXIDE 23 mmol/l (22-30); CHLORIDE 108 mmol/l (95-108); CREATININE 1.2 mg/dL (0.7-1.3); GFR > 60 ML/MIN (>=60 (CALC)); GFR FOR AFR.AMER. > 60 ML/MIN (>=60 (CALC)); SGOT/AST 23 u/l (19-48); SODIUM 141 mmol/l (137-146); TOTAL PROTEIN 7.3 g/dL (6.3-8.2)
[2019-03-09 04:30] LABS: MYOGLOBIN 68 ng/mL (0 - 121)
--- NOTE | 2019-03-09 04:40 | NUR ---
CLEANED OF FECAL INCONTINENCE. LINEN CHANGE.
[2019-03-09 05:03] LABS: URINE BLOOD DIPSTICK LARGE (NEGATIVE); URINE COLOR YELLOW; URINE GLUCOSE - DIPSTICK NEGATIVE (NEGATIVE); URINE KETONE TRACE mg/dL (NEGATIVE); URINE PH 5.5 (4.5-8.0); URINE PROTEIN - DIPSTICK 30 mg/dL (NEG-TRACE); URINE SPECIFIC GRAVITY 1.025; URINE UROBILINOGEN - DIPSTICK 0.2 E.U./dL (0.2)
[2019-03-09 05:16] LABS: URINE LEUK ESTERASE LARGE (NEGATIVE)
[2019-03-09 05:18] LABS: URINE BILIRUBIN - DIPSTICK NEGATIVE (NEGATIVE)
[2019-03-09 05:19] LABS: URINE EPITHELIAL CELLS FEW EPI/hpf (0-FEW); URINE NITRITE - DIPSTICK NEGATIVE (Negative); URINE RBC TNTC RBC/hpf (0-5); URINE WBC TNTC WBC/hpf (0-5)
[2019-03-09 05:22] LABS: URINE BACTERIA MODERATE hpf
--- NOTE | 2019-03-09 05:30 | NUR ---
RETURNED FROM RADIOLOGY. APPEARS COMFORTABLE. NO SIGNIFICANT CHANGE IN EXAM.
--- NOTE | 2019-03-09 06:30 | NUR ---
APPEARS ASLEEP. NAD. VSS.
--- NOTE | 2019-03-09 06:54 | NUR ---
Admission Note Report Given to: MICHAEL Transported by: Wheelchair X Stretcher Transported with: X Nurse Transporter X Patent IV O2 X Orange Picker
--- NOTE | 2019-03-09 07:14 | NUR ---
PT ARRIVED TO MED/SURG ROOM 282 IN STABLE CONDITION VIA STRETCHER ACCOMPANIED BY GAVI SONI;PT RE-POSITIONED INTO HOSPITAL BED WITH 2 PERSON ASSIST;VS AND WT OBTAINED BY RUPERT GUERRERO;PT A&O X4, ORIENTED TO ROOM AND CALL LIGHT SYSTEM;PT REPORTS GENERALIZED WEAKNESS AND DIARHHEA X2 DAYS;PT DENIES ANY CURRENT PAIN OR DISCOMFORTS,PAIN SCALE AND REPORTING EDUCATED;RESPIRATIONS EVEN AND UNLABORED ON RA,CLEAR.DIMINISHED LUNG SOUNDS NOTED;ABDOMEN SOFT ON PALPATION AND ACTIVE IN ALL 4 QUADRANTS;RANDHAWA CATHETER PATENT DRAINING YELLOW/CLOUDY URINE,STAT LOCK TO RIGHT THIGH NOTED;+2 EDEMA NOTED TO LLE,ENCOURAGED ELEVATION ON A PILLOW;WEAK PEDAL PULSES;REDDENING NOTED TO BUTTOCKS AND X2 ABRASIONS NOTED TO RLE;PHOTOGRAPHS TO BE PLACED IN CHART;EMS #20G TO RAC INFUSING NS @ 100ML/HR,SITE APPEARS HEALTHY;LEFT SIDED WEAKNESS NOTED TO HX OF CVA;ALLERGY BAND AND FALL BAND APPLIED;TELE MONITORING IN PLACE;PT DENIES ANY ADDITIONAL NEEDS AND IS ENCOURAGED TO CALL FOR ASSISTANCE IF NEEDED;FALL PRECAUTIONS IN PLACE WITH CALL LIGHT IN REACH;WILL CONTINUE TO MONITOR
[2019-03-09 07:20] VITALS: BP 142/79
[2019-03-09 11:00] VITALS: BP 110/57
--- NOTE | 2019-03-09 11:55 | NUR ---
PT RESTING IN SEMI FOWLERS POSITION;RESPIRATIONS EVEN AND UNLABORED ON RA;PT DENIES ANY CURRENT PAIN OR DISCOMFORTS;RANDHAWA CATHETER PATENT DRAINING TO GRAVITY WITH EASE;IV FLUIDS INFUSING TO RAC;ACCUCHECK 163, PT TO BE COVERED WITH SLIDING SCALE NOVOLOG PER ORDER;TELE MONITORING IN PLACE;ENCOURAGED TO CALL FOR ASSISTANCE IF NEEDED;CALL LIGHT IN REACH;WILL CONTINUE TO MONITOR
[2019-03-09] MEDS ORDERED: ASPIRIN 8181 MG PO (12:18)
[2019-03-09] MEDS ORDERED: ZYLOPRIM100 MG PO (12:18)
[2019-03-09] MEDS ORDERED: NORVASC5 M1 PO (12:19)
[2019-03-09] MEDS ORDERED: ATORVASTATIN CA10 MG PO (12:19)
[2019-03-09] MEDS ORDERED: COLACE100 MG PO (12:20)
[2019-03-09] MEDS ORDERED: FE TABS325 MG PO (12:20)
[2019-03-09] MEDS ORDERED: NEURONTIN300 MG PO (12:21)
[2019-03-09] MEDS ORDERED: GLUCOTROL5 MG PO (12:21)
[2019-03-09] MEDS ORDERED: HYDROCHLOROT12.5 M1 PO (12:22)
[2019-03-09] MEDS ORDERED: ZESTRIL5 MG PO (12:22)
[2019-03-09] MEDS ORDERED: DILANTIN100 MG PO (12:23)
[2019-03-09] MEDS ORDERED: METFORMIN500 M2 PO (12:23)
[2019-03-09] MEDS ORDERED: CRESTOR10 MG PO (12:24)
[2019-03-09] MEDS ORDERED: RANITIDINE150 M1 PO (12:24)
[2019-03-09] MEDS ORDERED: SENOKOT S1 TAB PO (12:25)
[2019-03-09] MEDS ORDERED: DOVONEX0.0051 (12:25)
[2019-03-09] MEDS ORDERED: CLINDAMYCIN PHOSP 1% (12:26)
[2019-03-09] MEDS ORDERED: KURIC2 % (12:26)
[2019-03-09] MEDS ORDERED: LIDOCAINE5 % (12:27)
[2019-03-09 14:31] VITALS: BP 127/67
--- NOTE | 2019-03-09 15:30 | NUR ---
PT OOB RESTING IN RECLINER;RESPIRATIONS EVEN AND UNLABORED ON RA;PT DENIES ANY CURRENT PAIN OR DISCOMFORTS;TELE MONITORING IN PLACE;RANDHAWA CATHETER REMAINS PATENT DRAINING TO GRAVITY;IV FLUIDS INFUSING TO RAC PER ORDER;PT DENIES ANY ADDITIONAL NEEDS;ASSESSMENT REMAINS UNCHANGED;ENCOURAGED TO CALL FOR ASSISTANCE IF NEEDED;CALL LIGHT IN REACH;WILL CONTINUE TO MONITOR
[2019-03-09] MEDS ORDERED: PEPCID20 MG PO (16:17)
[2019-03-09] MEDS ORDERED: TYLENOL # 31 TA1 PO (16:19)
[2019-03-09] MEDS ORDERED: MULTI VIT PO (16:20)
[2019-03-09] MEDS ORDERED: NOVOLOG FL100 UNIT/M SC (16:21)
--- NOTE | 2019-03-09 16:22 | NUR ---
UPDATED MED REC ACCORDING TO DISCHARGE PLAN OF CARE FROM [facility].
[2019-03-09 18:47] VITALS: BP 114/69
--- NOTE | 2019-03-09 20:20 | NUR ---
PT RESTING IN BED, NO SIGNS OF DISTRESS NOTED, RESP EVEN AND UNLABORED. PT APPEARS VERY LETHARGIC, HAND GRASPS BILAT WEAK, PT HAS HX OF CVA, L SIDED WEAKNESS. DISCUSSED POC, VERBALIZED UNDERSTANDING. RANDHAWA DRAINING TO GRAVITY, IVF INFUSING. ASSESSMENT COMPLETED, CALL LIGHT IN REACH,CONTINUE TO MONITOR.
[2019-03-09 23:48] VITALS: BP 135/62
--- NOTE | 2019-03-10 00:01 | NUR ---
PT RESTING IN BED WITH EYES CLOSED, NO SIGNS OF DISTRESS NOTED, RESP EVEN AND UNLABORED. CALL LIGHT IN REACH,CONTINUE TO MONITOR.
--- NOTE | 2019-03-10 03:43 | NUR ---
PT CONTINUES TO HAVE BM'S, REQUESTS BED GIBSON. SPECIMEN SENT TO LAB.
[2019-03-10 04:20] VITALS: BP 122/62
--- NOTE | 2019-03-10 05:30 | NUR ---
PT RESTING IN BED, NO SIGNS OF DISTRESS NOTED, RESP EVEN AND UNLABORED. PT VOICES NO NEEDS OR COMLAINTS AT THIS TIME, CALL LIGHT IN REACH,CONTINUE TO MONITOR.
[2019-03-10 06:17] LABS: IMMATURE GRANULOCYTES 0.8 % (0.0-5.0); MEAN CELL VOLUME 93.9 fL CALC (80.0-100.0); MEAN CORPUSCULAR HGB 28.9 pG CALC (26.0-32.0); MEAN CORPUSCULAR HGB CONC 30.8 g/L CALC (32.0-36.0); NEUT# 2.3 thou/uL (1.82-7.42); RED BLOOD COUNT 2.77 mill/uL (4.70-6.10); RED CELL DISTRI WIDTH 14.6 % (11.5-15.5)
[2019-03-10 06:55] LABS: ANION GAP 11 (6-22 (CALC)); BUN 26 mg/dL (8-23); BUN/CREATININE RATIO 28 (12-20 (CALC)); CARBON DIOXIDE 23 mmol/l (22-30); CHLORIDE 110 mmol/l (95-108); CREATININE 0.9 mg/dL (0.7-1.3); GFR > 60 ML/MIN (>=60 (CALC)); GFR FOR AFR.AMER. > 60 ML/MIN (>=60 (CALC)); MAGNESIUM 1.6 mg/dL (1.6-2.3); POTASSIUM 3.8 mmol/l (3.5-5.1); SODIUM 140 mmol/l (137-146)
--- NOTE | 2019-03-10 07:25 | NUR ---
ASSESSMENT IS COMPLETED: IV SITE IS FREE FROM REDNESS OR EDEMA. HR IS REG, PULSES ARE STRONG BILATERALLY, ABD IS SOFT WITH ACTIVE BS. BREATH SOUNDS ARE CLEAR BILATERALLY. CONTINUE TO OBSERVE AND MONITOR., PT HAS A RANDHAWA DRAINING YELLOW URINE AND TELE MONITOR IN PLACE
[2019-03-10 08:27] VITALS: BP 138/71
[2019-03-10 11:00] VITALS: BP 142/63
--- NOTE | 2019-03-10 11:08 | NUR ---
OT IN TO VISIT WITH PT
--- NOTE | 2019-03-10 12:00 | NUR ---
PT IS RELAXING IN BED WITH NO DISTRESS NOTED. IV SITE IS FREE FROM REDNESS OR EDMEA. DR MENENDEZ IN TO VISIT WITH PT. CONTINUE TO OSBERVE AND MONITOR.
--- NOTE | 2019-03-10 13:05 | NUR ---
DR MENENDEZ IN TO VISIT WITH PT
--- NOTE | 2019-03-10 14:40 | NUR ---
S: "I WANT TO WASH UP." O: PATIENT RECEIVED LYING ON L SIDE. O.T. REPOSITIONED PATIENT SITTING UPRIGHT TO PERFORM GROOMING/UB BATHING AND O.T. SET UP BASIN AND PATIENT PERFORMED UB BATHING WITH MOD A AND PERFORMED GROOMING WITH SET UP. O.T. REPOSITIONED PATIENT AT END OF TREATMENT WITH LUE/LLE SUPPORTED FOR PRESSURE RELIEF. A: PATIENT MOTIVATED TODAY TO PERFORM SELF CARE SKILLS. P: CON'T TO PROGRESS PATIENT.
[2019-03-10 15:05] VITALS: BP 118/71; BP 135/68
--- NOTE | 2019-03-10 16:00 | NUR ---
PT HAS BEEN RESTING IN BED WITH NO DISTRESS NOTED. IV SITE IS FREE FROM REDNESS OR EDMEA.
--- NOTE | 2019-03-10 17:00 | NUR ---
TRUCKMAN CAME AND SPOKE TO THIS NO BAKE MOLDER RE: PT C/O HIS BOTTOM HURTING, CONSULTING ENGINEER'S HAVE BEEN TURNING PT BUT HE KEEPS GOING BACK TO HIS BACK. WILL PLACE BARRIER CREAM , AND THEN WAS INFORMED THAT [facility] HAS ACCEPTED PT POSSIBLE TRNASFER TOMORROW.
--- NOTE | 2019-03-10 18:23 | NUR ---
SPOKE WITH DR. MENENDEZ RE: TELE ON PT MAY TAKE OFF DISCONTINUED TELE.
--- NOTE | 2019-03-10 18:30 | NUR ---
PT C/O CATHETER POSSIBLY LEAKING. , HAS HAD LARGE AMOUNT OF URINE WITH SEDIMENT TODAY IN THE BAG. ADDED MORE WATER TO THE BALLOON AND WILL KEEP A DRY CLOTH JUST IN CASE IT LEAKS AGAIN.
--- NOTE | 2019-03-10 19:00 | NUR ---
REPORT RECEIVED FROM MARGARITA GARZA.
--- NOTE | 2019-03-10 19:20 | NUR ---
PT RESTING IN BED ON LEFT SIDE; ALERT AND ORIENTED. DENIES PAIN CURRENTLY. RESPIRATIONS EVEN AND UNLABORED ON ROOM AIR. ASSESSMENT COMPLETED. PT HAS LEFT SIDED WEAKNESS; UNABLE TO LIFT LEFT ARM AND BRACE INTACT TO LEFT WRIST; HAND HAS SOME CONTRACTION AND PT UNABLE TO MOVE FINGERS; CSM GOOD. LEFT LEG DRIFTS DOWN TO BED. LUNGS ARE CLEAR. SMALL OPEN AREA NOTED TO LEFT BUTT; PHOTOS ARE IN CHART; ABRASIONS TO BILATERAL KNEES THAT ARE HEELING SCABS. RANDHAWA CATHETER PATENT AND DRAINING CLEAR YELLOW URINE IN ADEQUATE AMOUNTS. IV SITE APPEARS HEALTHY AND FLUSHES. PLAN OF CARE REVIEWED. PT ENCOURAGED TO VERBALIZE CONCERNS. STATES UNDERSTANDING. SAFETY MEASURES IN PLACE. CALL LIGHT WITHIN REACH.
[2019-03-10 19:35] VITALS: BP 122/61
[2019-03-10 23:50] VITALS: BP 126/66
[2019-03-11 03:45] VITALS: BP 149/71
--- NOTE | 2019-03-11 07:50 | NUR ---
PT A&O X3. BREATHING EVEN AND UNLABORED. PT STATES HE HAS BEEN NOTICING HIS CATHETER HAS BEEN LEAKING. 450 OUTPUT NOTED. REMOVED CATHETER. NO COMPLAINTS OF PAIN AT THIS TIME. DISCUSSED POC. ASSESSMENT COMPLETED AT THIS TIME. CALL LIGHT WITHIN REACH. WILL CONTINUE TO MONITOR.
[2019-03-11 07:55] VITALS: BP 149/46
--- NOTE | 2019-03-11 10:21 | NUR ---
PT VOIDED 200 CC OF CLEAR YELLOW URINE. BLADDER SCANNED POST VOID RISIDUAL 74 ML.
--- NOTE | 2019-03-11 11:45 | NUR ---
PT RESTING IN BED. NO FURTHER NEEDS AT THIS TIME. CALL LIGHT WITHIN REACH. CONTINUE TO MONITOR.
--- NOTE | 2019-03-11 14:00 | NUR ---
PT ASSISTED TO RECLINER AT BEDSIDE, NO SIGNS OF DISTRESS NOTED, RESP EVEN AND UNLABORED, PT TOLERATED WELL. CALL LIGHT IN REACH,CONTINUE TO MONITOR.
[2019-03-11 15:00] VITALS: BP 119/64
--- NOTE | 2019-03-11 16:07 | NUR ---
PT RESTING IN RECLINER. NO FURTHER NEEDS AT THIS TIME. CALL LIGHT WITHIN REACH. CONTINUE TO MONITOR.
--- NOTE | 2019-03-11 17:12 | NUR ---
PT RESTING IN RECLINER. NO FURTHER NEEDS AT THIS TIME. CALL LIGHT WITHIN REACH. CONTINUE TO MONITOR.
[2019-03-11 21:25] VITALS: BP 133/71
--- NOTE | 2019-03-12 00:25 | NUR ---
PT REPOSITIONED AND CLEANED OF SCANT STOOL. AQUACELL DRESSING TO BUTTOCKS. PT DENIED ANY OTHER NEEDS. ASSISTED DRINKING PO FLUIDS.
--- NOTE | 2019-03-12 04:14 | NUR ---
URINAL EMPTIED OF 200CC OF CLEAR YELLOW URINE. PT REFUSED TO BE TURNED AND POSITIONED W/PILLOWS. NO S/O DISTRESS. PT WATCHING TV W/LIGHTS ON.
[2019-03-12 05:00] VITALS: BP 150/74
[2019-03-12 05:45] LABS: HEMATOCRIT 28.7 % (39.0-50.0); MEAN CELL VOLUME 92.9 fL CALC (80.0-100.0); MEAN CORPUSCULAR HGB 29.1 pG CALC (26.0-32.0); MEAN CORPUSCULAR HGB CONC 31.4 g/L CALC (32.0-36.0); RED BLOOD COUNT 3.09 mill/uL (4.70-6.10); RED CELL DISTRI WIDTH 14.4 % (11.5-15.5)
[2019-03-12 06:01] LABS: ANION GAP 15 (6-22 (CALC)); BUN 26 mg/dL (8-23); BUN/CREATININE RATIO 26 (12-20 (CALC)); CARBON DIOXIDE 25 mmol/l (22-30); CHLORIDE 104 mmol/l (95-108); GFR > 60 ML/MIN (>=60 (CALC)); GFR FOR AFR.AMER. > 60 ML/MIN (>=60 (CALC)); SODIUM 140 mmol/l (137-146)
--- NOTE | 2019-03-12 07:40 | NUR ---
PT RESTING IN RECLINER. A&O X3. BREATHING EVEN AND UNLABORED. DISCUSSE POC. ASSESSMENT COMPLETED AT THIS TIME. CALL LIGHT WITHIN REACH. CONTINUE TO MONITOR.
[2019-03-12 08:00] VITALS: BP 142/70
--- NOTE | 2019-03-12 08:30 | NUR ---
ASSISTED PT TO BEDSIDE COMMODE. PT HAD BM. OLD DRESSING TO BUTTOCKS REMOVED. PERICARE DONE. PHOTO OBTAINED, SEE CHART. NEW DRESSING APPLIED. PT TOLERATED WELL. ASSISTED PT BACK INTO RECLINER. CALL LIGHT IN REACH. CONTINUE MONITOR.
--- NOTE | 2019-03-12 11:03 | NUR ---
PT SITTING IN RECLINER WORKING ON WORD SEARCH PUZZLES. NO FURTHER NEEDS AT THIS TIME. CALL LIGHT IN REACH. CONTINUE TO MONITOR.
--- NOTE | 2019-03-12 14:00 | NUR ---
ASSITED PT FROM RECLINER TO BED. NO FURTHER NEEDS AT THIS TIME. CALL LIGHT WITHIN REACH. CONTINUE TO MONITOR.
[2019-03-12 15:14] VITALS: BP 116/65
--- NOTE | 2019-03-12 17:00 | NUR ---
ORDERS TO PLACE RANDHAWA CATHETER, #22F RANDHAWA WITH 30CC STERILE WATER INSERTED USING STERILE TECHNIQUE, PT TOLERATED WELL. REPORT GIVEN TO [facility]. IV REMOVED, CATHETER INTACT.
== END 2019-03-12 18:14 | DRG 640 ==
LOC: ED 03:29 → ED-I 05:50 → ED 06:07 → MS2 06:08
PROVIDERS: Emergency Medicine; Nurse Practitioner Family; ADMIT Internal Medicine; ATTEND Internal Medicine
PROC: 0T9B70Z Drainage of Bladder with Drainage Device, Via Natural or Artificial Opening (ICD-10-PCS; principal; 2019-03-09)
DX: R62.7 Adult failure to thrive (principal); G93.41 Metabolic encephalopathy; I69.954 Hemiplegia and hemiparesis following unspecified cerebrovascular disease affecting left non-dominant side; E86.0 Dehydration; I10 Essential (primary) hypertension; E11.40 Type 2 diabetes mellitus with diabetic neuropathy, unspecified; G40.909 Epilepsy, unspecified, not intractable, without status epilepticus; E78.5 Hyperlipidemia, unspecified; K21.9 Gastro-esophageal reflux disease without esophagitis; L89.322 Pressure ulcer of left buttock, stage 2; R33.9 Retention of urine, unspecified; D64.9 Anemia, unspecified; M10.9 Gout, unspecified; M62.81 Muscle weakness (generalized); Z60.2 Problems related to living alone; Z87.891 Personal history of nicotine dependence; Z79.4 Long term (current) use of insulin; Z68.20 Body mass index [BMI] 20.0-20.9, adult
CPT/HCPCS: G0378

== ENCOUNTER 2019-09-26 10:45 | Observation (INO) | payer MEDICARE ==
[~2019-09-26] VITALS: Ht 180.3 cm; Wt 72.1 kg
[~2019-09-26 10:45] MED LIST changes: +ASPIRIN 8181 MG PO; +CLINDAMYCIN PHOSP 1%; +COLACE100 MG PO; +DOVONEX0.0051; +FE TABS325 MG PO; +GLUCOTROL5 MG PO; +KURIC2 %; +LIDOCAINE5 %; +METFORMIN500 M2 PO; +NORVASC5 M1 PO; +NOVOLOG FL100 UNIT/M SC; +PEPCID20 MG PO; +SENOKOT S1 TAB PO
--- NOTE | 2019-09-26 11:00 | NUR ---
PT ARRIVES BY EMS AOX4 BUT SLOW TO RESPOND AND INTERM SLURRED SPEACH. EMS STATES PT WAS FOUND ON FLOOR AND WAS THERE FOR FOUR DAYS. PT HAS DRY MUCUS MEMB. WHEN RETRIEVING BLOOD, IT IS DARK AND THICK. PT STATES BEING THIRSTY. SKING HAS DEBRIS AND SCALING. FECAL MATTER UNDER FINGER NAILS. AND SOME THICK BROWN SUBSTANCE ON TEETH. PT HAS A SMALL KNOT ON THE BACK OF HEAD. HE STATES TRYING TO GET SOMETHING OUT OF MEDICINE CAB AND WAS KNOCKED OUT BY SOMETHING THAT FELL ON HIM
[2019-09-26 11:28] LABS: HEMATOCRIT 38.8 % (39.0-50.0); HEMOGLOBIN 11.1 g/dl (14.0-18.0); IMMATURE GRANULOCYTES 0.5 % (0.0-5.0); MEAN CELL VOLUME 92.2 fL CALC (80.0-100.0); MEAN CORPUSCULAR HGB 26.4 pG CALC (26.0-32.0); MEAN CORPUSCULAR HGB CONC 28.6 g/dL CAL (32.0-36.0); NEUT# 6.34 thou/uL (1.82-7.42); RED BLOOD COUNT 4.21 mill/uL (4.70-6.10); RED CELL DISTRI WIDTH 14.5 % (11.5-15.5)
--- NOTE | 2019-09-26 12:01 | NUR ---
PT RESTING AND NOTIFIED OF PLAN OF CARE. CALL LIGHT WITHIN REACH
--- NOTE | 2019-09-26 13:00 | NUR ---
PT BED WAS CHANGED BECAUSE OF DEBRIS AND INCONTINANCE. PT HAD A BRIEF PUT ON. REDNESS WAS DETECTED ON THE RIGHT UPPER BACK, RIGHT HIP AND SACRAL AREA. TENDER TO THE TOUCH. MULTIPLE SKIN ULCERATIONS THAT HAS CRUSTED OVER. SCRATCHES ALL OVER BODY WITH DIRTH AND SKIN BUILDUP NOTED IN SKIN CREASES. FECAL MATER UNDER FINGERNAILS. POSSIBLE SCABIES NOTED AROUND PT NECK. PT STATES LOOSING LARGE AMOUNT OF WEIGHT RECENTLY. HE MENTIONS NOT SEEING HIS PCP IN FOUR YEARS AND HAS NOT TAKEN HIS MEDS SINCE THEN
[2019-09-26 13:07] LABS: CPK 357 u/l (52-200); MAGNESIUM 2.2 mg/dL (1.6-2.3)
[2019-09-26 13:08] LABS: ALBUMIN 4.1 g/dL (3.2-5.0); ALKALINE PHOSPHATASE 89 u/l (38-126); BUN 48 mg/dL (8-23); BUN/CREATININE RATIO 34 (12-20 (CALC)); CHLORIDE 113 mmol/l (95-108); CREATININE 1.4 mg/dL (0.7-1.3); GFR 51 ML/MIN (>=60 (CALC)); GFR FOR AFR.AMER. > 60 ML/MIN (>=60 (CALC)); PHENYTOIN (DILANTIN) < 3 ug/mL (10 - 20); POTASSIUM 4.2 mmol/l (3.5-5.1); SGOT/AST 39 u/l (19-48); SODIUM 147 mmol/l (137-146); TOTAL PROTEIN 7.5 g/dL (6.3-8.2)
[2019-09-26 13:09] LABS: ANION GAP 20 (6-22 (CALC)); BILIRUBIN, TOTAL 0.9 mg/dL (0.0-1.4); CARBON DIOXIDE 18 mmol/l (22-30)
[2019-09-26 13:57] LABS: MYOGLOBIN 607 ng/mL (0 - 121)
--- NOTE | 2019-09-26 14:00 | NUR ---
PT RESTING IN ROOM WITH EYES CLOSED.
[2019-09-26 14:49] LABS: ALBUMIN 4.3 g/dL (3.2-5.0); ALKALINE PHOSPHATASE 97 u/l (38-126); ANION GAP 20 (6-22 (CALC)); BILIRUBIN, TOTAL 0.9 mg/dL (0.0-1.4); BUN 48 mg/dL (8-23); BUN/CREATININE RATIO 34 (12-20 (CALC)); CARBON DIOXIDE 18 mmol/l (22-30); CHLORIDE 112 mmol/l (95-108); CPK 361 u/l (52-200); CREATININE 1.4 mg/dL (0.7-1.3); GFR 51 ML/MIN (>=60 (CALC)); GFR FOR AFR.AMER. > 60 ML/MIN (>=60 (CALC)); MAGNESIUM 2.2 mg/dL (1.6-2.3); POTASSIUM 3.9 mmol/l (3.5-5.1); SGOT/AST 39 u/l (19-48); SODIUM 146 mmol/l (137-146); TOTAL PROTEIN 7.7 g/dL (6.3-8.2)
[2019-09-26 14:59] LABS: MYOGLOBIN 607 ng/mL (0 - 121)
--- NOTE | 2019-09-26 15:00 | NUR ---
16F RANDHAWA PLACED USING STERILE TECHNIQUE, IMMEDIATE RETURN OF CLOUDY BIANCA URINE 500+ CC, CATH SECURITY DEVICE PLACED TO R UPPER THIGH, PT TOLERATED WITHOUT INCIDENT.
[2019-09-26 15:02] LABS: PHENYTOIN (DILANTIN) < 3 ug/mL (10 - 20)
--- NOTE | 2019-09-26 15:11 | NUR ---
ULTRASOUND AT BEDSIDE
--- NOTE | 2019-09-26 15:22 | NUR ---
Superintendent [employer] contacted by ED for direction re: Inpatient vs Observation - Superintendent [employer] advised observational status.
[2019-09-26 15:25] LABS: URINE BLOOD DIPSTICK LARGE (NEGATIVE); URINE COLOR YELLOW; URINE GLUCOSE - DIPSTICK NEGATIVE (NEGATIVE); URINE KETONE 40 mg/dL (NEGATIVE); URINE NITRITE - DIPSTICK NEGATIVE (Negative); URINE PH 5.5 (4.5-8.0); URINE PROTEIN - DIPSTICK 100 mg/dL (NEG-TRACE); URINE SPECIFIC GRAVITY >=1.030; URINE UROBILINOGEN - DIPSTICK 0.2 E.U./dL (0.2)
[2019-09-26 15:30] LABS: URINE LEUK ESTERASE MODERATE (NEGATIVE)
[2019-09-26 15:31] LABS: URINE BILIRUBIN - DIPSTICK NEGATIVE (NEGATIVE)
--- NOTE | 2019-09-26 17:05 | NUR ---
GAVE REPORT TO GREG
--- NOTE | 2019-09-26 17:10 | NUR ---
PT TRANSPORTED TO [facility] SUR[facility] STABLE AND IN NO DISTRESS. PT CARE ASSUMED TO GREG Admission Note Report Given to: Transported by: Wheelchair X Stretcher Transported with: X Nurse Transporter X Patent IV O2 X Life Claims Examiner Location: ICU X MS2
--- NOTE | 2019-09-26 17:16 | NUR ---
PT ARRIVED VIA STRETCHER ACCOMPANIED BY STAFF, EDER RANDHAWA AND TELE
[2019-09-26 17:32] VITALS: BP 165/81
--- NOTE | 2019-09-26 17:45 | NUR ---
ASSESSMENT IS COMPLETED: PT WAS ON THE PHONE. IV SITE IS FREE FROM REDNESS OR EDEMA. HR IS REG, PULSES ARE STRONG , ABD IS SOFT WITH ACTIVE BS., BREATH SOUNDS ARE CLEAR,BILATERALLY, PT HAS A RANDHAWA IN PLACE WITH CLOUDY URINE. BRACE ON LEFT WRIST FROM OLD CVA. TELE MONITOR IN PLACE. PT HAS MANY ABRASIONS AND SCABS WITH SORES ON ARMS, LEGS, COCCYX, HIP, AND FEET PICTURES HAVE BEEN OBTAINED. CONTINUE TO OSBERVE AND MONITOR.
[2019-09-26 19:32] VITALS: BP 151/85
--- NOTE | 2019-09-26 20:00 | NUR ---
PT ASSESSMENT COMPLETED AT THIS TIME. MILD WHEEZE AUSCULTATED TO LUNG SOUNDS, HYPERACTIVE BOWEL SOUNDS. PT IS DRINKING A LOT OF WATER WHILE I'M IN THE ROOM AND ASKING FOR ICECREAM. STATING HE IS HUNGRY FROM NOT EATING FOR 4 DAYS. SCABS AND REDNESS THROUGHOUT BODY FROM HEAD TO TOES, PICTURES ARE IN CHART. RANDHAWA CATHETER DRAINING CLOUDY YELLOW URINE TO GRAVITY. SPLINT TO L.HAND/CONTRATURES FROM OLD CVA, LEFT ARM/HAND ELEVATED ON PILLOW AT THIS TIME FOR COMFORT. WILL FOLLOW-UP W/PLACEMENT OF DUODERM TO R.HIP FOR REDNESS AND OPEN STAGE II AREA TO R.HIP. PT LOC TO CIRCUMSTANCE AND LOCATION AT THIS TIME, BUT REPORTS VISION IS BLURRY SINCE FALLING. NEURO'S APPEAR INTACT TO BASELINE. WILL CONTINUE TO MONITOR FOR CHANGES. ICECREAM PROVIDED AT THIS TIME. PT DENIES ANY OTHER NEEDS, IVF RUNNING TO SITE IN RAC/SITE APPEARS HEALTHY AT THIS TIME. CALL LIGHT W/IN REACH. BST MOVED TO RIGHT SIDE OF THE BED FOR CONVENIENT ACCESS TO RIGHT ARM. TV AND LIGHTS LEFT ON.
--- NOTE | 2019-09-26 20:33 | NUR ---
PT MEDICATED ORDERS PROVIDE. PT C/O BEING COLD, BLANKET PROVIDED. PITCHER REFILLED W/WATER. PT LOC TO SELF AND CIRCUMSTANCE, MEDICATED W/TYLENOL FOR GENERALIZED PAIN FROM "HEAD TO TOES." PT STATES HE "JUST WANT TO SLEEP."
--- NOTE | 2019-09-26 22:15 | NUR ---
PT SLEEPING, NO S/O DISTRESS NOTED.
[2019-09-27 00:09] VITALS: BP 134/71
--- NOTE | 2019-09-27 00:10 | NUR ---
PT GOWN AND BEDDING CHANGED, PT SPILLED WATER IN BED. RANDHAWA CATHETER DRAINING TO GRAVITY CLOUDY YELLOW URINE. AQUACILL APPLIED TO COCCYX AND R,HIP AREA FOR STAGE II PRESSURE ULCER DRAINING SMALL AMOUNT OF SEROUS DRAINAGE. PT TOLERATED WELL. PT ASKING FOR ORANGE JUICE/PROVIDED AND ASSISTED PT TO DRINK, PT C/O "KINK IN NECK" ASSISTED PT REPOSITIONING FOR COMFORT. PT DENIED ANY OTHER NEEDS AT THIS TIME. WILL CONTINUE TO MONITOR. NEURO'S INTACT. CALL LIGHT REPLACED W/IN REACH AND BST POSITIONED FOR OPTIMAL ACCESS DUE TO CONTRACTED L.ARM.
[2019-09-27 03:23] VITALS: BP 136/76
--- NOTE | 2019-09-27 05:20 | NUR ---
V/S ASSESSED, PT IS RETURNING BACK TO SLEEP. NO S/O DISTRESS NOTED.
[2019-09-27 07:45] VITALS: BP 160/83
[2019-09-27 08:21] LABS: BUN 41 mg/dL (8-23); BUN/CREATININE RATIO 35 (12-20 (CALC)); CHLORIDE 111 mmol/l (95-108); CREATININE 1.2 mg/dL (0.7-1.3); GFR > 60 ML/MIN (>=60 (CALC)); GFR FOR AFR.AMER. > 60 ML/MIN (>=60 (CALC)); POTASSIUM 3.7 mmol/l (3.5-5.1); SODIUM 142 mmol/l (137-146)
[2019-09-27 08:31] LABS: ANION GAP 13 (6-22 (CALC)); CARBON DIOXIDE 22 mmol/l (22-30)
[2019-09-27] MEDS ORDERED: MULTI VIT PO (08:52)
[2019-09-27] MEDS ORDERED: ASPIRIN81 MG PO (08:53)
--- NOTE | 2019-09-27 09:00 | NUR ---
PT ALERT AND ORIENTED X 3, LUNGS CLEAR, RA. PT WITH LEFT SIDED HEMIPARESIS FROM CVA MANY YEARS AGO. SKIN WITH ABRASIONS TO EXTREMITIES, RASH NOTED TO HIS BACK. NO COMPLAINTS, NO DISTRESS NOTED.
[2019-09-27 12:10] VITALS: BP 158/87
--- NOTE | 2019-09-27 14:42 | NUR ---
PT PROVIDED MILK OF MAGNESIA PER SENSATION OF FULLNESS IN ABDOMEN. PT CONTINUES BEFORE, NO COMPLAINTS, NO DISTRESS, NIH 0.
[2019-09-27 16:00] VITALS: BP 158/82
--- NOTE | 2019-09-27 18:00 | NUR ---
PT DID HAVE LARGE BM AFTER MOM AND SUPPOSITORY GIVEN, PT FEELS RELIEF.
--- NOTE | 2019-09-27 20:10 | NUR ---
ASSESSMENT COMPLETED. IV SITE PATENT AND INFUSING ORDERED IVF WELL. TELEMTRY IN PLACE. DRESSINGS IN PLACE TO RIGHT HIP AND COCCYX; CDI. PT. ABLE TO TURN IN BED. LEFT WRIST SPLINT IN PLACE. PT. WITH MINIMAL MOVEMENT TO LLE R/T HX OF CVA. DENIES NEEDS. CALL LIGHT IS IN REACH.
[2019-09-27 20:48] VITALS: BP 166/89
[2019-09-28] VITALS (7 sets, daily range): BP systolic 128–171; BP diastolic 65–88
--- NOTE | 2019-09-28 00:07 | NUR ---
NEW BAG OF ORDERED NS HUNG PER ORDER. PT. AWAKE AND OFFERED PRN SONATA AND PT. DECLINES. VOICES NO CONCERNS. CALL LIGHT IS IN REACH.
--- NOTE | 2019-09-28 01:58 | NUR ---
RESTING IN BED WITH EYES CLOSED; RESP. EVEN AND UNLABORED.
--- NOTE | 2019-09-28 03:00 | NUR ---
PT. FOUND WITH IV SITE DISLODGED. PT. GIVEN A CBB AND LINENS CHANGED. DRESSINGS TO RIGHT HIP AND BUTTOCKS CHANGED. BARRIER CREAM ALSO APPLIED. PT. THEN C/O ARIAS 02/02 AND MEDICATED WITH ORDERED PRN TYLENOL. WILL REASSESS.
--- NOTE | 2019-09-28 05:55 | NUR ---
RESTING IN BED WITH EYES CLOSED; RESP. EVEN AND UNLABORED. CALL LIGHT IS IN REACH. WILL CONTINUE TO MONITOR.
--- NOTE | 2019-09-28 09:00 | NUR ---
PT AWAKE, ALERT, ORIENTED X 3. LEFT SIDED HEMIPARESIS FROM PREVIOUS CVA, BUT PT ABLE TO DO MUCH WITH RIGHT ARM. NO DISTRESS, NO COMPLAINTS. PT AWARE OF PENDING DISCHARGE TO [facility] LATER TODAY.
[2019-09-28] MEDS ORDERED: JANUVIA50 MG PO (10:57)
[2019-09-28] MEDS ORDERED: AMLODIPINE BESYL5 MG PO (10:57)
[2019-09-28] MEDS ORDERED: DILANTIN100 MG PO (10:57)
--- NOTE | 2019-09-28 13:00 | NUR ---
RANDHAWA CATHETER REMOVED, PT ABLE TO VOID WITHOUT DIFFICULTY. CASE MGMT REPORTS NO DISCHARGE TO FACILITY TODAY.
--- NOTE | 2019-09-28 13:43 | NUR ---
Ampac score=14. Pt found lying in bed watching tv. We then worked on bed mobility as pt transitioned from supine to sit on EOB. Pt uses RUE to perform transfers and bed mobility due to hemiplegia. Pt required some assistance to get LLE over EOB. Pt then transferred from bed to chair with min assist. While sitting in chair pt performed active LAQ on RLE and attempted LAQ with LLE. Therapist then performed PROM and AAROM with LLE including plantar and dorsiflexion. Unable to achieve terminal ext with LLE due to hamstring tightness. Pt then transferred from chair back to bed. We then performed static standing for 2mins x2. Pt required min assist to achieve standing position and exhibited poor balance. Pt then stated he would like to stay sitting up for lunch. Communicated with nursing and pt then ate lunch while sitting up on EOB.
--- NOTE | 2019-09-28 17:56 | NUR ---
PT WAS OOB IN CHAIR EARLIER TODAY, TOLERATED WELL. NO PROBLEMS NOTED PT RESTS IN THE BED AT THIS TIME.
--- NOTE | 2019-09-28 19:00 | NUR ---
REPORT RECEIVED FROM Neil BOOTH RN. CARE OF PT ASSUMED @ THIS TIME.
--- NOTE | 2019-09-28 20:00 | NUR ---
PHYSICAL ASSESSMENT COMPLETE. VS TAKEN BY NURSE GYNECOLOGY @ 1945 ASSESSED. PLAN OF CARE REVIEWED. PT DENIES QUESTIONS @ THIS TIME, VERBALIZES UNDERSTANDING. PT DENIES NEEDS @ THIS TIME. ITEMS WITHIN REACH. BED LOCKED IN LOW POSITION W/ BEDRAILS UP X2. CALL GAGE WITHIN REACH, AGREES TO CALL PRN.
--- NOTE | 2019-09-29 | NUR ---
PT REPOSITIONED FOR COMFORT. DENIES NEEDS @ THIS TIME. CALL GAGE REMAINS WITHIN REACH, AGREES TO CALL PRN. ITEMS REMAIN WITHIN REACH. BED REMAINS LOCKED IN LOW POSITION W/ BEDRAILS UP X2.
[2019-09-29 04:20] LABS: MEAN CORPUSCULAR HGB 26.6 pG CALC (26.0-32.0); MEAN CORPUSCULAR HGB CONC 30.8 g/dL CAL (32.0-36.0); RED BLOOD COUNT 3.31 mill/uL (4.70-6.10); RED CELL DISTRI WIDTH 14.5 % (11.5-15.5)
[2019-09-29 04:22] LABS: HEMATOCRIT 28.6 % (39.0-50.0); HEMOGLOBIN 8.8 g/dl (14.0-18.0); MEAN CELL VOLUME 86.4 fL CALC (80.0-100.0)
[2019-09-29 04:37] LABS: ANION GAP 7 (6-22 (CALC)); BUN 22 mg/dL (8-23); BUN/CREATININE RATIO 21 (12-20 (CALC)); CARBON DIOXIDE 24 mmol/l (22-30); CHLORIDE 110 mmol/l (95-108); CREATININE 1.1 mg/dL (0.7-1.3); GFR > 60 ML/MIN (>=60 (CALC)); GFR FOR AFR.AMER. > 60 ML/MIN (>=60 (CALC)); POTASSIUM 3.4 mmol/l (3.5-5.1); SODIUM 138 mmol/l (137-146)
[2019-09-29 04:53] VITALS: BP 144/69
--- NOTE | 2019-09-29 05:00 | NUR ---
NEW BAG OF NS HUNG, SEE MAR. AM VS TAKEN, URINAL EMPTIED, PT RESTING IN BED. APPEARS COMFORTABLE AND IN NO APPARENT DISTRESS. DENIES NEEDS @ THIS TIME. CALL GAGE REMAINS WITHIN REACH, AGREES TO CALL PRN. ITEMS REMAIN WITHIN REACH. BED REMAINS LOCKED IN LOW POSITION W/ BEDRAILS UP X2.
--- NOTE | 2019-09-29 07:15 | NUR ---
REPORT RECEIVED FROM GAVI FERRARI. PT SITTING UP ON EDGE OF BED FOR MORNING CARE. ASSISTED TO BEDSIDE CHAIR WITH 2 PERSON ASSIST. ASSESSMENT COMPLETED AT THIS TIME. PT C/O MILD PAIN TO SCATTERED ABRASIONS AND PRESSURE ULCERS TO BUTT AND LEFT ANKLE. ALSO C/O SOME DIZZINESS. RESPIRATIONS EVEN AND UNLABORED ON ROOM AIR. IV FLUIDS INFUSING WITHOUT DIFFICULTY; IV SITE HAS REDNESS; WILL CONTINUE TO MONITOR. LUNGS ARE CLEAR. LEFT SIDE FLACCID PT ABLE TO MOVE, BUT LEFT ARM AND LEG DRIFT DOWN TO BED. 4+ PITTING EDEMA TO LEFT FOOT. PLAN OF CARE REVIEWED INCLUDING PENDING COVID SWAB. PT ENCOURAGED TO VERBALIZE CONCERNS. STATES UNDERSTANDING. SAFETY MEASURES IN PLACE. CALL LIGHT WITHIN REACH.
[2019-09-29 08:00] VITALS: BP 142/77
--- NOTE | 2019-09-29 09:25 | NUR ---
DR. MENENDEZ AT BEDSIDE.
[2019-09-29 10:30] VITALS: BP 136/80
--- NOTE | 2019-09-29 11:34 | NUR ---
PT SITITNG UP EATING LUNCH. 2 UNITS OF INSULIN GIVEN FOR ACCU CHECK OF 204. IV FLUIDS NOW INFUSING AT KVO. NO REQUESTS OR CONCERNS AT THIS TIME. CALL LIGHT WITHIN REACH.
--- NOTE | 2019-09-29 12:42 | NUR ---
DRESSINGS REPLACED TO PRESSURE ULCERS ON COCCYX, RIGHT HIP, AND LEFT ANKLE. PHOTOS PLACED IN CHART. RAPID COVID TEST DRAWN AND SENT TO LAB.
--- NOTE | 2019-09-29 13:31 | NUR ---
PHYSICAL THERAPY AT BEDSIDE FOR STRENGTHENING.
--- NOTE | 2019-09-29 13:54 | NUR ---
IV site discontinued, cath intact. No edema , no redness, voices no discomfort.
--- NOTE | 2019-09-29 14:30 | NUR ---
Discharge instructions given. Patient verbalizes understanding of same. Discharged in stable condition via Medical Transport to [facility] in [place] with [employer]. All belongings sent with pt.
--- NOTE | 2019-09-29 14:52 | NUR ---
REPORT CALLED TO ADEOLA AT [facility].
== END 2019-09-29 14:30 ==
LOC: ED 10:45 → ED-I 11:41 → ED 11:41 → ED-I 14:50 → ED 15:20 → MS2 15:21 → ED-I 15:21 → MS2 15:54
PROVIDERS: Family Medicine; ADMIT Internal Medicine; ATTEND Internal Medicine
PROC: 0T9B70Z Drainage of Bladder with Drainage Device, Via Natural or Artificial Opening (ICD-10-PCS; principal; 2019-09-26)
DX: N17.9 Acute kidney failure, unspecified (principal); M62.82 Rhabdomyolysis; E86.0 Dehydration; M62.81 Muscle weakness (generalized); E86.1 Hypovolemia; E87.0 Hyperosmolality and hypernatremia; I10 Essential (primary) hypertension; E11.40 Type 2 diabetes mellitus with diabetic neuropathy, unspecified; I69.954 Hemiplegia and hemiparesis following unspecified cerebrovascular disease affecting left non-dominant side; E78.5 Hyperlipidemia, unspecified; D64.9 Anemia, unspecified; B86 Scabies; T50.916A Underdosing of multiple unspecified drugs, medicaments and biological substances, initial encounter; Z91.128 Patient's intentional underdosing of medication regimen for other reason; Z87.891 Personal history of nicotine dependence; Z11.59 Encounter for screening for other viral diseases; G40.909 Epilepsy, unspecified, not intractable, without status epilepticus
CPT/HCPCS: G0378

== ENCOUNTER 2020-01-01 15:17 | Emergency (ER) | payer MEDICARE ==
[~2020-01-01] VITALS: Ht 180.3 cm; Wt 96.0 kg
[~2020-01-01 15:17] MED LIST changes: +JANUVIA50 MG PO
[2020-01-01 15:51] LABS: HEMATOCRIT 33.5 % (39.0-50.0); HEMOGLOBIN 10.3 g/dl (14.0-18.0); IMMATURE GRANULOCYTES 0.6 % (0.0-5.0); MEAN CORPUSCULAR HGB CONC 30.7 g/dL CAL (32.0-36.0); NEUT# 4.38 thou/uL (1.82-7.42); RED BLOOD COUNT 3.68 mill/uL (4.70-6.10); RED CELL DISTRI WIDTH 15.8 % (11.5-15.5)
[2020-01-01 16:04] LABS: ALBUMIN 3.9 g/dL (3.2-5.0); ALKALINE PHOSPHATASE 113 u/l (38-126); BUN 18 mg/dL (8-23); BUN/CREATININE RATIO 15 (12-20 (CALC)); CARBON DIOXIDE 26 mmol/l (22-30); CHLORIDE 103 mmol/l (95-108); CREATININE 1.2 mg/dL (0.7-1.3); GFR > 60 ML/MIN (>=60 (CALC)); GFR FOR AFR.AMER. > 60 ML/MIN (>=60 (CALC)); SGOT/AST 15 u/l (19-48); SODIUM 138 mmol/l (137-146); TOTAL PROTEIN 7.1 g/dL (6.3-8.2)
[2020-01-01 16:06] LABS: ANION GAP 13 (6-22 (CALC)); BILIRUBIN, TOTAL 0.3 mg/dL (0.0-1.4); POTASSIUM 4.2 mmol/l (3.5-5.1)
[2020-01-01 16:16] LABS: MYOGLOBIN 52 ng/mL (0 - 121)
[2020-01-01] MEDS ORDERED: KEFLEX500 M1 PO (17:09)
[2020-01-01 17:16] LABS: URINE BILIRUBIN - DIPSTICK NEGATIVE (NEGATIVE); URINE BLOOD DIPSTICK LARGE (NEGATIVE); URINE COLOR YELLOW; URINE GLUCOSE - DIPSTICK NEGATIVE (NEGATIVE); URINE KETONE NEGATIVE (NEGATIVE); URINE NITRITE - DIPSTICK NEGATIVE (Negative); URINE PROTEIN - DIPSTICK 30 mg/dL (NEG-TRACE); URINE SPECIFIC GRAVITY >=1.030; URINE UROBILINOGEN - DIPSTICK 0.2 E.U./dL (0.2)
[2020-01-01 17:21] LABS: URINE LEUK ESTERASE MODERATE (NEGATIVE)
[2020-01-01 17:31] LABS: URINE WBC 20-50 WBC/hpf (0-5); URINE YEAST FEW hpf
[2020-01-01 17:42] VITALS: BP 113/63
== END 2020-01-01 18:05 | disposition home or self-care (01) ==
LOC: ED 15:17
DX: E05.90 Thyrotoxicosis, unspecified without thyrotoxic crisis or storm (principal); L03.116 Cellulitis of left lower limb; L03.115 Cellulitis of right lower limb; R00.2 Palpitations; E11.9 Type 2 diabetes mellitus without complications; I10 Essential (primary) hypertension; G40.909 Epilepsy, unspecified, not intractable, without status epilepticus; Z86.73 Personal history of transient ischemic attack (TIA), and cerebral infarction without residual deficits; Z79.84 Long term (current) use of oral hypoglycemic drugs

== ENCOUNTER 2020-05-15 12:22 | Emergency (ER) | payer MEDICARE ==
[~2020-05-15] VITALS: Ht 180.3 cm; Wt 70.0 kg
[2020-05-15] MEDS ORDERED: ACETAMINOPHEN PO (12:45)
[2020-05-15] MEDS ORDERED: STOOL SOFTENER100 MG PO (12:46)
[2020-05-15] MEDS ORDERED: MILK OF MAG30 ML/UDC PO (12:46)
[2020-05-15 13:51] LABS: HEMATOCRIT 36.4 % (39.0-50.0); HEMOGLOBIN 11.9 g/dl (14.0-18.0); IMMATURE GRANULOCYTES 2.2 % (0.0-5.0); MEAN CELL VOLUME 95.3 fL CALC (80.0-100.0); MEAN CORPUSCULAR HGB 31.2 pG CALC (26.0-32.0); MEAN CORPUSCULAR HGB CONC 32.7 g/dL CAL (32.0-36.0); NEUT# 9.5 thou/uL (1.82-7.42); RED BLOOD COUNT 3.82 mill/uL (4.70-6.10); RED CELL DISTRI WIDTH 12.6 % (11.5-15.5)
[2020-05-15 14:16] LABS: ALBUMIN 4.1 g/dL (3.2-5.0); ALKALINE PHOSPHATASE 118 u/l (38-126); ANION GAP 13 (6-22 (CALC)); BILIRUBIN, TOTAL 0.4 mg/dL (0.0-1.4); BUN 33 mg/dL (8-23); BUN/CREATININE RATIO 26 (12-20 (CALC)); CARBON DIOXIDE 23 mmol/l (22-30); CHLORIDE 103 mmol/l (95-108); CREATININE 1.2 mg/dL (0.7-1.3); GFR > 60 ML/MIN (>=60 (CALC)); GFR FOR AFR.AMER. > 60 ML/MIN (>=60 (CALC)); POTASSIUM 4.7 mmol/l (3.5-5.1); SGOT/AST 22 u/l (19-48); SODIUM 135 mmol/l (137-146); TOTAL PROTEIN 7.7 g/dL (6.3-8.2)
[2020-05-15 15:10] VITALS: BP 144/77
== END 2020-05-15 15:10 | disposition short-term general hospital (02) ==
LOC: ED 12:22
PROVIDERS: Family Medicine
DX: S72.142A Displaced intertrochanteric fracture of left femur, initial encounter for closed fracture (principal); E11.9 Type 2 diabetes mellitus without complications; I10 Essential (primary) hypertension; G40.909 Epilepsy, unspecified, not intractable, without status epilepticus; I69.354 Hemiplegia and hemiparesis following cerebral infarction affecting left non-dominant side; W19.XXXA Unspecified fall, initial encounter; Y92.009 Unspecified place in unspecified non-institutional (private) residence as the place of occurrence of the external cause